=== PATIENT | male | born 1940 | race Caucasian/White ===

== ENCOUNTER 2018-08-06 10:10 | Inpatient (IN) ==
[2018-08-06] MEDS ORDERED: Isovue-370 500 ML BOTTLE IVP ONE (10:21)
--- NOTE | 2018-08-06 10:21 | Emergency Department Note ---
Disposition Clinical Impression: Carcinoma, lung, Hypoxia, Severe sepsis, Anemia Disposition: Admitted As Inpatient Condition: Fair General Adult HPI - General Stated complaint: ÁNGEL,Chest Xray, Sent by Dr. Gee Time Seen by Provider: 08/06/18 10:17 - Related Data Home Medications Medication Instructions Recorded Confirmed Aspirin 325 mg PO DAILY 06/29/18 08/06/18 BuPROPion SR (12 HR) [Wellbutrin 100 mg PO DAILY 06/29/18 08/06/18 SR] Glucosamine Sulfate Dipot Chlr 2,000 mg PO BID 06/29/18 08/06/18 [Glucosamine] Lisinopril [Zestril] 10 mg PO DAILY 06/29/18 08/06/18 [place]-3/Dha/Epa/Fish Oil [Fish Oil 1,000 mg PO BID 06/29/18 08/06/18 1,000 mg Softgel] Simvastatin [Zocor] 80 mg PO DAILY 06/29/18 08/06/18 Vitamin E 800 unit PO DAILY 06/29/18 08/06/18 Lidocaine/Prilocaine [Emla] 1 appl TP AD PRN 08/06/18 08/06/18 Zolpidem [Ambien] 10 mg PO HS PRN 08/06/18 08/06/18 Previous Rx's Medication Instructions Recorded Docusate [Colace] 100 mg PO BID PRN #60 capsule 06/29/18 Dexamethasone [Decadron] 4 mg PO AD #45 tab 07/06/18 Magic Mouthwash [Magic Mouthwash 10 ml PO QID PRN #240 ml 07/28/18 BLM] Allergies Allergy/AdvReac Type Severity Reaction Status Date / Time No Known Allergies Allergy Verified 07/10/18 10:42 Past Medical History - Past Medical History Medical history: Reports: hypertension - Social History Smoking Status: Former smoker Alcohol use: Reports: occasionally Drug use: Reports: none Course Vital Signs Temperature 98.8 F 08/06/18 10:24 Pulse Rate 105 08/06/18 10:24 Respiratory Rate 22 08/06/18 10:24 Blood Pressure 87/53 08/06/18 10:24 O2 Sat by Pulse Oximetry 92 08/06/18 10:24 Temperature 98.8 F 08/06/18 10:24 Pulse Rate 100 08/06/18 14:13 Respiratory Rate 18 08/06/18 15:14 Blood Pressure 87/58 08/06/18 14:17 O2 Sat by Pulse Oximetry 94 08/06/18 15:14 Oxygen Delivery Oxygen Delivery Nasal Cannula Medical Decision Making - Lab Data Result diagrams: 08/06/18 10:20 08/06/18 10:20 Lab Results 08/06/18 08/06/18 08/06/18 Range/Units 10:20 10:20 10:20 WBC 16.8 H (4.3-11.1) K/mcL RBC 3.59 L (4.19-5.50) M/mcL Hgb 10.0 L (12.9-16.9) g/dL Hct 30.6 L (37.5-50.1) % MCV 85.2 (83.0-100.0) fL MCH 27.9 L (28.0-33.3) pg MCHC 32.7 (31.6-35.5) g/dL RDW 17.0 H (11.5-14.5) % Plt Count 289 (140-400) K/mcL MPV 9.9 (9.4-12.4) fL Immature Gran % 4.9 H (0-4) % Seg Neutrophils % 87.1 % Lymphocytes % 4.8 % Monocytes % 2.7 % Eosinophils % 0.1 % Basophils % 0.4 % Neutrophils # 14.6 H (1.6-8.9) K/mcL Lymphocytes # 0.8 (0.6-4.6) K/mcL Monocytes # 0.5 (0.0-1.3) K/mcL Eosinophils # 0.0 (0.0-0.6) K/mcL Basophils # 0.1 (0.0-0.2) K/mcL Platelet Estimate Normal (Normal) PT 14.0 H (9.4-12.1) Seconds INR 1.2 Sodium 131 L (136-145) mEq/L Potassium 4.6 (3.5-5.1) mEq/L Chloride 97 L (98-107) mEq/L Carbon Dioxide 22 L (23-29) mEq/L BUN 35 H (8-23) mg/dL Creatinine 0.99 (0.70-1.30) mg/dL Est GFR ( Amer) > 60 (> 60) Est GFR (Non-Af Amer) > 60 (> 60) BUN/Creatinine Ratio 35 H (6-26) Glucose 199 H (70-105) mg/dL Calculated Osmolality 286 (280-300) Lactic Acid (0.5-2.2) mmol/L Calcium 8.6 (8.6-10.3) mg/dL Magnesium 2.0 (1.6-2.6) mg/dL Total Bilirubin 0.5 (0.3-1.0) mg/dL AST 28 (13-39) Units/L ALT 30 (7-52) Units/L Alkaline Phosphatase 79 (34-104) Units/L Troponin I 0.03 (< 0.04) ng/mL B-Natriuretic Peptide (Less than 100) pg/mL Serum Total Protein 5.9 L (6.4-8.9) g/dL Albumin 2.8 L (3.5-5.7) g/dL Globulin 3.1 (2.4-3.5) g/dL Albumin/Globulin Ratio 0.9 L (1.1-2.2) 08/06/18 08/06/18 08/06/18 Range/Units 10:20 10:20 13:14 WBC (4.3-11.1) K/mcL RBC (4.19-5.50) M/mcL Hgb (12.9-16.9) g/dL Hct (37.5-50.1) % MCV (83.0-100.0) fL MCH (28.0-33.3) pg MCHC (31.6-35.5) g/dL RDW (11.5-14.5) % Plt Count (140-400) K/mcL MPV (9.4-12.4) fL Immature Gran % (0-4) % Seg Neutrophils % % Lymphocytes % % Monocytes % % Eosinophils % % Basophils % % Neutrophils # (1.6-8.9) K/mcL Lymphocytes # (0.6-4.6) K/mcL Monocytes # (0.0-1.3) K/mcL Eosinophils # (0.0-0.6) K/mcL Basophils # (0.0-0.2) K/mcL Platelet Estimate (Normal) PT (9.4-12.1) Seconds INR Sodium (136-145) mEq/L Potassium (3.5-5.1) mEq/L Chloride (98-107) mEq/L Carbon Dioxide (23-29) mEq/L BUN (8-23) mg/dL Creatinine (0.70-1.30) mg/dL Est GFR ( Amer) (> 60) Est GFR (Non-Af Amer) (> 60) BUN/Creatinine Ratio (6-26) Glucose (70-105) mg/dL Calculated Osmolality (280-300) Lactic Acid 4.1 H* 1.9 (0.5-2.2) mmol/L Calcium (8.6-10.3) mg/dL Magnesium (1.6-2.6) mg/dL Total Bilirubin (0.3-1.0) mg/dL AST (13-39) Units/L ALT (7-52) Units/L Alkaline Phosphatase (34-104) Units/L Troponin I (< 0.04) ng/mL B-Natriuretic Peptide 158 H (Less than 100) pg/mL Serum Total Protein (6.4-8.9) g/dL Albumin (3.5-5.7) g/dL Globulin (2.4-3.5) g/dL Albumin/Globulin Ratio (1.1-2.2) Attestation Statement - Attestation Attestation: I reviewed the residents documentation and agree with the residents assessment and plan of care. I have personally had face to face time with the patient. (Brief History, Brief Exam, and MDM) I personally supervised and was present for the mohamud/critical portions of the following procedures completed by the resident: (add procedures performed here). [id number] time provided Patient arrives in the care of family complaining of dyspnea. He has recent diagnosis of lung cancer. He is not currently undergoing any active chemother apy. The patient appears visibly tachypneic on exam with accessory muscle use. Pulse ox was [facility]. I attest to supervising the resident physician's interpretation the ECG
[2018-08-06] MEDS ORDERED: Ipratropium/Albuterol Neb 3 ML IH ONE ×2 (10:24→12:42)
--- NOTE | 2018-08-06 10:27 | Emergency Department Note ---
Disposition Clinical Impression: Hypoxia, Severe sepsis Carcinoma, lung Qualifiers: Laterality: unspecified laterality Qualified Code(s): C34.90 - Malignant neoplasm of unspecified part of unspecified bronchus or lung Anemia Qualifiers: Anemia type: unspecified type Qualified Code(s): D64.9 - Anemia, unspecified Disposition: Admitted As Inpatient Condition: Fair Referrals: Rosaline Foote SENIOR ACCOUNTING MANAGER [Primary Care Provider] - Forms: ED Satisfaction Letter Time of Disposition: 12:46 General Adult HPI - General Chief complaint: ED Shortness of Breath/Dyspnea Stated complaint: ÁNGEL,Chest Xray, Sent by Dr. 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 Patient presents in the care of the family. Family states the patient has gone progressively more short of breath over the past 24 hours. States he was undergoing physical therapy yesterday. Notes dyspnea worsen with exertion. Notes a nonproductive cough. No fevers. Patient denies any chest pain. Patient denies abdominal pain or nausea vomiting. Patient does not require oxygen at home but was satting 80% in the oncology office on room air. Patient's on 4 L nasal cannula currently. Patient has not received any recent chemoradiation. States the diagnosis of lung cancer was over a year ago. Patient does have radiation therapy due to metastatic disease in the brain in the past but nothing recent. Denies a history of PEs. - Related Data Home Medications Medication Instructions Recorded Confirmed Aspirin 325 mg PO DAILY 06/29/18 08/06/18 BuPROPion SR (12 HR) [Wellbutrin 100 mg PO DAILY 06/29/18 08/06/18 SR] Glucosamine Sulfate Dipot Chlr 2,000 mg PO BID 06/29/18 08/06/18 [Glucosamine] Lisinopril [Zestril] 10 mg PO DAILY 06/29/18 08/06/18 [place]-3/Dha/Epa/Fish Oil [Fish Oil 1,000 mg PO BID 06/29/18 08/06/18 1,000 mg Softgel] Simvastatin [Zocor] 80 mg PO DAILY 06/29/18 08/06/18 Vitamin E 800 unit PO DAILY 06/29/18 08/06/18 Lidocaine/Prilocaine [Emla] 1 appl TP AD PRN 08/06/18 08/06/18 Zolpidem [Ambien] 10 mg PO HS PRN 08/06/18 08/06/18 Previous Rx's Medication Instructions Recorded Docusate [Colace] 100 mg PO BID PRN #60 capsule 06/29/18 Dexamethasone [Decadron] 4 mg PO AD #45 tab 07/06/18 Magic Mouthwash [Magic Mouthwash 10 ml PO QID PRN #240 ml 07/28/18 BLM] Allergies Allergy/AdvReac Type Severity Reaction Status Date / Time No Known Allergies Allergy Verified 07/10/18 10:42 All systems ED: reviewed and negative except as stated. Constitutional: Denies: fever Cardiovascular: Denies: chest pain Respiratory: Reports: cough, dyspnea. Denies: sputum production Gastrointestinal: Denies: abdominal pain, nausea, vomiting Past Medical History - Past Medical History Source: patient Medical history: Reports: hypertension - Social History Smoking Status: Former smoker Alcohol use: Reports: occasionally Drug use: Reports: none Physical Exam - General Limitations: no limitations General appearance: alert, cachectic - Head Head exam: atraumatic, normocephalic, normal inspection - Eye Eye exam: Present: normal appearance, PERRL, EOMI. Absent: scleral icterus - ENT ENT exam: normal exam - Neck Neck exam: Present: normal inspection - Chest Chest inspection: Present: normal inspection, symmetric chest wall rise, other (Left upper chest wall port) - Respiratory Respiratory exam: Present: accessory muscle use, prolonged expiratory phase. Absent: respiratory distress, wheezes - Cardiovascular Cardiovascular exam: Present: normal rhythm, tachycardia. Absent: normal heart sounds - Abdominal Exam Abdominal exam: Present: soft, Non-Tender - Extremities Exam Extremities exam: Present: normal inspection - Back Exam Back exam: Present: normal inspection - Neurological Exam Neurological exam: Present: alert, oriented X3, CN II-XII intact - Skin Skin exam: Present: warm, dry, intact, normal color Course Course Narrative: Patient presents from the oncology office for concerns of PE. Patient does have known lung CA. Patient is not on any chemoradiation currently. Patient will get respiratory support with oxygen, aerosols. Patient will get basic labs CT a of the chest anticipated admission for hypoxia. - Reevaluation(s) Reevaluation #1: Patient's lactate came back elevated. In the setting of hypotension. The patient is responding to fluids. Second IV placed. Patient will get fluid resuscitation. Patient also get broad-spectrum antibiotic coverage given concerns of a pulmonary source. Time: 11:09 Reevaluation #2: Patient's blood pressures responded to fluids. Patient's vitals are improving during the ED course. Time: 11:38 Reevaluation #3: Patient seen and examined. Patient CT results discussed with him at bedside. Notes worsening lung cancer metastatic disease. Patient will repeat aerosols. Patient blood pressure 95 systolic. Patient's responded to fluids. Repeat lactate is pending. Time: 12:45 Additional Reevaluation(s): Patient's CT report discussed with him at bedside. Concerns of worsening metastatic disease. Patient recent map of 72. QUESTION were answered at this time. At this time the patient is still full code and states he would want in tubation as well as chest compressions. Vital Signs Temperature 98.8 F 08/06/18 10:24 Pulse Rate 105 08/06/18 10:24 Respiratory Rate 22 08/06/18 10:24 Blood Pressure 87/53 08/06/18 10:24 O2 Sat by Pulse Oximetry 92 08/06/18 10:24 Temperature 98.8 F 08/06/18 10:24 Pulse Rate 99 08/06/18 11:30 Respiratory Rate 18 08/06/18 13:02 Blood Pressure 99/61 08/06/18 11:30 O2 Sat by Pulse Oximetry 92 08/06/18 13:02 Oxygen Delivery Oxygen Delivery Nasal Cannula Medical Decision Making - [facility] Narrative Medical decision making narrative: Patient presented for concerns of hypoxia from the cancer center. Has squamous cell lung cancer. Patient was noted to have room air sats in the 80s. Patient does not wear home oxygen. Patient triggered sepsis with concerns of hypotension the setting of elevated lactate and potential source of infection. Patient was given fluid resuscitation with 30 mL/kg. Patient was given broad- spectrum antibiotic coverage to cover pulmonary. Patient CT scan the chest does not reveal any PE or discrete consolidation but notes worsening metastatic disease. Patient does have severe COPD. Patient will be admitted to the hospital service for continued evaluation monitoring. Patient has been stable in the ER for several hours. Patient was noted to be anemic however denies any blood in the stool or dark tarry stools. Patient also benefit from goals of care discussion. - Lab Data Lab results reviewed: Yes I reviewed the patient's lab results. Result diagrams: 08/06/18 10:20 08/06/18 10:20 Lab Results 08/06/18 08/06/18 08/06/18 Range/Units 10:20 10:20 10:20 WBC 16.8 H (4.3-11.1) K/mcL RBC 3.59 L (4.19-5.50) M/mcL Hgb 10.0 L (12.9-16.9) g/dL Hct 30.6 L (37.5-50.1) % MCV 85.2 (83.0-100.0) fL MCH 27.9 L (28.0-33.3) pg MCHC 32.7 (31.6-35.5) g/dL RDW 17.0 H (11.5-14.5) % Plt Count 289 (140-400) K/mcL MPV 9.9 (9.4-12.4) fL Immature Gran % 4.9 H (0-4) % Seg Neutrophils % 87.1 % Lymphocytes % 4.8 % Monocytes % 2.7 % Eosinophils % 0.1 % Basophils % 0.4 % Neutrophils # 14.6 H (1.6-8.9) K/mcL Lymphocytes # 0.8 (0.6-4.6) K/mcL Monocytes # 0.5 (0.0-1.3) K/mcL Eosinophils # 0.0 (0.0-0.6) K/mcL Basophils # 0.1 (0.0-0.2) K/mcL Platelet Estimate Normal (Normal) PT 14.0 H (9.4-12.1) Seconds INR 1.2 Sodium 131 L (136-145) mEq/L Potassium 4.6 (3.5-5.1) mEq/L Chloride 97 L (98-107) mEq/L Carbon Dioxide 22 L (23-29) mEq/L BUN 35 H (8-23) mg/dL Creatinine 0.99 (0.70-1.30) mg/dL Est GFR ( Amer) > 60 (> 60) Est GFR (Non-Af Amer) > 60 (> 60) BUN/Creatinine Ratio 35 H (6-26) Glucose 199 H (70-105) mg/dL Calculated Osmolality 286 (280-300) Lactic Acid (0.5-2.2) mmol/L Calcium 8.6 (8.6-10.3) mg/dL Magnesium 2.0 (1.6-2.6) mg/dL Total Bilirubin 0.5 (0.3-1.0) mg/dL AST 28 (13-39) Units/L ALT 30 (7-52) Units/L Alkaline Phosphatase 79 (34-104) Units/L Troponin I 0.03 (< 0.04) ng/mL B-Natriuretic Peptide (Less than 100) pg/mL Serum Total Protein 5.9 L (6.4-8.9) g/dL Albumin 2.8 L (3.5-5.7) g/dL Globulin 3.1 (2.4-3.5) g/dL Albumin/Globulin Ratio 0.9 L (1.1-2.2) 08/06/18 08/06/18 Range/Units 10:20 10:20 WBC (4.3-11.1) K/mcL RBC (4.19-5.50) M/mcL Hgb (12.9-16.9) g/dL Hct (37.5-50.1) % MCV (83.0-100.0) fL MCH (28.0-33.3) pg MCHC (31.6-35.5) g/dL RDW (11.5-14.5) % Plt Count (140-400) K/mcL MPV (9.4-12.4) fL Immature Gran % (0-4) % Seg Neutrophils % % Lymphocytes % % Monocytes % % Eosinophils % % Basophils % % Neutrophils # (1.6-8.9) K/mcL Lymphocytes # (0.6-4.6) K/mcL Monocytes # (0.0-1.3) K/mcL Eosinophils # (0.0-0.6) K/mcL Basophils # (0.0-0.2) K/mcL Platelet Estimate (Normal) PT (9.4-12.1) Seconds INR Sodium (136-145) mEq/L Potassium (3.5-5.1) mEq/L Chloride (98-107) mEq/L Carbon Dioxide (23-29) mEq/L BUN (8-23) mg/dL Creatinine (0.70-1.30) mg/dL Est GFR ( Amer) (> 60) Est GFR (Non-Af Amer) (> 60) BUN/Creatinine Ratio (6-26) Glucose (70-105) mg/dL Calculated Osmolality (280-300) Lactic Acid 4.1 H* (0.5-2.2) mmol/L Calcium (8.6-10.3) mg/dL Magnesium (1.6-2.6) mg/dL Total Bilirubin (0.3-1.0) mg/dL AST (13-39) Units/L ALT (7-52) Units/L Alkaline Phosphatase (34-104) Units/L Troponin I (< 0.04) ng/mL B-Natriuretic Peptide 158 H (Less than 100) pg/mL Serum Total Protein (6.4-8.9) g/dL Albumin (3.5-5.7) g/dL Globulin (2.4-3.5) g/dL Albumin/Globulin Ratio (1.1-2.2) - Radiology Data Radiology results reviewed: Yes I reviewed the patient's radiology results. Chest CTA 08/06/18 10:21 IMPRESSION: 1. Redemonstration of a left upper lung cancer extending along the left anterior, medial and lateral pleural surface as well as into the left hilar area with encasement of vessels and bronchi. 2. Redemonstration of extensive mediastinal and hilar lymphadenopathy. 3. No evidence of acute pulmonary embolism. 4. Thickening of the distal esophagus consistent with esophagitis. 5. Redemonstration of severe emphysema. A nodule in the left upper lobe adjacent to the main lesion has grown in size. 6. Although no evidence of pleural effusion there is evidence of irregularity and nodularity along the left pleural surface which may represent metastatic deposits. D/ / 08/06/2018 12:40:53 Araceli Phelps MD / tkyer Interpreting Provider: Araceli Phelps MD - EKG Data EKG #1 EKG attestation: Yes I reviewed and interpreted this EKG. EKG shows normal: sinus rhythm Rate: tachycardia Rhythm: NSR [place]/QRS: normal Q waves: aVR Interpretation: no acute changes, nonspecific ST-T wave changes [place] Situation: Demographics Background: Presenting Complaint Assessment: Vital Signs, Course and respsone to treatment Recommendation: Barrier(s) to disposition, Recommendation based on pending studies, treatments, or consults [place] Report Given to: Hospitalist [place] Repor Time: 13:11 Sepsis Reassessment Note - Evaluation Sepsis Screen: Severe Sepsis Risk Current Stage of Sepsis: severe sepsis Possible Source of Sepsis: pulmonary - Focused Exam Date of Encounter: 08/06/18 Time of Encounter: 11:22 Vital Signs: Vital Signs Temp Pulse Resp BP Pulse Ox 08/06/18 13:02 18 92 08/06/18 11:30 99 24 99/61 96 08/06/18 10:49 101 26 81/48 91 08/06/18 10:43 24 97 08/06/18 10:38 102 34 77/57 98 08/06/18 10:24 98.8 F 105 22 87/53 92 Respiratory Exam: Present: accessory muscle use, decreased breath sounds. Absent: respiratory distress Cardiovascular Exam: Present: RRR Capillary Refill: < 2 seconds Peripheral Pulse Strength: 2+ slightly diminished Peripheral Pulse Location: Radial Skin Exam: normal turgor
[2018-08-06] MEDS: 0.9 % Sodium Chloride 500 ML IVC ONE ×2 (10:36→11:23)
[2018-08-06 10:50] LABS: Basophils # 0.1 K/mcL (0.0-0.2); Basophils % 0.4 %; Eosinophils % 0.1 %; Hematocrit 30.6 % (37.5-50.1); Immature Granulocytes % 4.9 % (0-4); Lymphocytes # 0.8 K/mcL (0.6-4.6); Lymphocytes % 4.8 %; Mean Corpuscular HGB Conc 32.7 g/dL (31.6-35.5); Mean Corpuscular Hemoglobin 27.9 pg (28.0-33.3); Mean Corpuscular Volume 85.2 fL (83.0-100.0); Mean Platelet Volume 9.9 fL (9.4-12.4); Monocytes # 0.5 K/mcL (0.0-1.3); Monocytes % 2.7 %; Platelet Count 289 K/mcL (140-400); Red Blood Count 3.59 M/mcL (4.19-5.50); Segmented Neutrophils % 87.1 %
[2018-08-06] MEDS ORDERED: 0.9 % Sodium Chloride 500 ML ONE (10:55)
[2018-08-06 11:01] LABS: INR 1.2
[2018-08-06] MEDS ORDERED: 0.9 % Sodium Chloride 1,000 ML IVC ONE (11:08)
[2018-08-06 11:09] LABS: Alanine Aminotransferase 30 Units/L (7-52); Albumin 2.8 g/dL (3.5-5.7); Albumin/Globulin Ratio 0.9 (1.1-2.2); Alkaline Phosphatase 79 Units/L (34-104); Aspartate Amino Transferase 28 Units/L (13-39); BUN/Creatinine Ratio 35 (6-26); Bilirubin,Total 0.5 mg/dL (0.3-1.0); Blood Urea Nitrogen 35 mg/dL (8-23); Calcium 8.6 mg/dL (8.6-10.3); Carbon Dioxide 22 mEq/L (23-29); Chloride 97 mEq/L (98-107); Globulin 3.1 g/dL (2.4-3.5); Glucose 199 mg/dL (70-105); Neutrophils # 14.6 K/mcL (1.6-8.9); Osmolality,Calculated 286 (280-300); Potassium 4.6 mEq/L (3.5-5.1); Sodium 131 mEq/L (136-145); Total Protein 5.9 g/dL (6.4-8.9); Troponin I 0.03 ng/mL (< 0.04); eGFR For Non-African Americans > 60 (> 60)
[2018-08-06] MEDS ORDERED: Piperacillin/Tazobactam 3.375 GM in 0.9 % Sodium Chloride Mini Bag 100 ML IVPB ONE (11:09)
[2018-08-06 11:30] LABS: Platelet Estimate Normal (Normal)
[2018-08-06] MEDS ORDERED: 0.9 % Sodium Chloride 500 ML IVC ONE (11:43)
[2018-08-06] MEDS ORDERED: methylPREDNISolone 125 MG/2 ML VIAL IVP ONE (12:44)
[2018-08-06] MEDS ORDERED: Acetaminophen 325 MG TABLET PO PRN (14:04)
[2018-08-06] MEDS ORDERED: Naloxone 0.4 MG/ML INJ IVP PRN (14:04)
--- NOTE | 2018-08-06 14:19 | Internal Med History&Physical ---
<Josafat Rincon - Last Filed: 08/06/18 17:56> Date of Encounter: 08/06/18 Time of Encounter: 15:06 Internal Medicine - H&P: HPI Chief complaint: Hypoxia Admitted From: Emergency Dept History of present illness: Mr. 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 Hermila Davey secondary to hypoxia and shortness of breath for the past 1 day. He is on dexamethasone status post radiation treatment 3 to his brain. Patient has a left upper chest Port-A-Cath in place that does not appear infected at this time. In the ED, patient meet severe sepsis criteria with lactic acid 4.1, leukocytosis WBC 16.8, tachycardia heart rate 105, respiratory rate 34, and initial blood pressure 77/57. Patient was given sepsis IV fluid bolus, broad- spectrum antibiotics, and blood cultures were obtained. Past Med Surg Social Fam HX - Past Medical History Medical history: cancer, diabetes, hypertension Additional medical history: brain tumor, right side paralysis, lung cancer, brain cancer, and lymphnode - Past Surgical History Additional surgical history: triple bypass, cardiac stents, back surgery - Social History Smoking Status: Former smoker Alcohol use: occasionally Drug use: none - Family History Father Living Status: Hx Family Cardiac Disorders: Yes (PR) Hx Family Respiratory Disorders: Yes (COPD) Mother Living Status: Hx Family Cardiac Disorders: Yes (Hyperlipidemia) Internal Medicine - H&P: Meds Aspirin 325 mg PO DAILY 06/29/18 [History] BuPROPion SR (12 HR) [Wellbutrin SR] 100 mg PO DAILY 06/29/18 [History] Docusate [Colace] 100 mg PO BID PRN #60 capsule 06/29/18 [Rx] Glucosamine Sulfate Dipot Chlr [Glucosamine] 2,000 mg PO BID 06/29/18 [History] Lisinopril [Zestril] 10 mg PO DAILY 06/29/18 [History] [place]-3/Dha/Epa/Fish Oil [Fish Oil 1,000 mg Softgel] 1,000 mg PO BID 06/29/18 [History] Simvastatin [Zocor] 80 mg PO DAILY 06/29/18 [History] Vitamin E 800 unit PO DAILY 06/29/18 [History] Dexamethasone [Decadron] 4 mg PO AD #45 tab 07/06/18 [Rx] Magic Mouthwash [Magic Mouthwash BLM] 10 ml PO QID PRN #240 ml 07/28/18 [Rx] Lidocaine/Prilocaine [Emla] 1 appl TP AD PRN 08/06/18 [History] Zolpidem [Ambien] 10 mg PO HS PRN 08/06/18 [History] Allergy/AdvReac Type Severity Reaction Status Date / Time No Known Allergies Allergy Verified 07/10/18 10:42 All Systems PM: A 10-system review of systems was performed and is negative for pertinent findings except as documented above in the HPI. - Constitutional Constitutional: chills, fatigue, weakness, no fever(s) - EENT Eyes: no blurry vision, no diplopia Nose, mouth and throat: no sinus pain, no sore throat - Cardiovascular Cardiovascular ROS IM: dyspnea, palpitations, no chest pain, no dyspnea on exertion, no edema, no irregular heart rhythm, no orthopnea, no syncope - Respiratory Respiratory: cough, dyspnea, wheezing, no dyspnea on exertion, no chest congestion - Gastrointestinal Gastrointestinal: no abdominal pain, no diarrhea, no nausea, no vomiting - Genitourinary Genitourinary ROS male: no difficulty urinating, no dysuria, no urinary frequency, no urinary urgency - Musculoskeletal Musculoskeletal ROS IM: no arthralgias, no back pain, no numbness, no tingling - Integumentary Integumentary IM: no new lesions, no rash, no jaundice - Neurological Neurological ROS: weakness, no numbness, no tingling - Psychiatric Psychiatric: no anxiety, no depression - Endocrine Endocrine IM: no polydipsia, no polyphagia, no polyuria - Hematologic/Lymphatic Hematologic/Lymphatic: no easy bleeding, no easy bruising - Constitutional Vitals: Temp Pulse Resp BP Pulse Ox 98.8 F 100 18 87/58 95 08/06/18 10:24 08/06/18 14:13 08/06/18 13:02 08/06/18 14:17 05/16/19 14:13 General appearance: Present: cooperative, A&O X 3, pleasant, no acute distress, answers questions appropriately Exam: Chronically ill-appearing - Head Head exam: Present: atraumatic, normocephalic - Eye Eye exam: Present: EOMI, conjuntiva pink, sclera anicteric - ENT ENT exam: Present: mucous membranes dry, normal oropharynx - Neck Neck exam general surgery: Present: supple, trachea midline. Absent: lymphadenopathy - Respiratory Respiratory exam: Present: decreased breath sounds. Absent: accessory muscle use, rales, respiratory distress, rhonchi, wheezes - Cardiovascular Cardiovascular exam: Present: RRR, +S1, +S2, tachycardia. Absent: diastolic murmur, gallop, rubs, systolic murmur - GI/Abdominal GI/Abdominal exam: Present: normal bowel sounds, soft, no peritoneal signs. Absent: distended, tenderness - Extremities Exam Extremities exam: Present: warm, radial pulses palpable and symmetrical. Absent: calf tenderness, cyanotic, pedal edema - Back Exam Back exam: Present: normal inspection. Absent: paraspinal tenderness, tenderness - Neurological Exam Neurological exam: Present: alert, CN II-XII intact, oriented X3, no focal deficits. Absent: facial droop, speech deficit - Psychiatric Psychiatric exam: Present: normal affect, normal mood - Skin Skin exam: Present: dry, intact (No erythema left upper chest port site) Internal Med - H&P Results - Labs CBC & Chem 7: 08/06/18 10:20 08/06/18 10:20 Labs: Short CBC 08/06/18 Range/Units 10:20 WBC 16.8 H (4.3-11.1) K/mcL Hgb 10.0 L (12.9-16.9) g/dL Hct 30.6 L (37.5-50.1) % Plt Count 289 (140-400) K/mcL Neutrophils # 14.6 H (1.6-8.9) K/mcL BMP 08/06/18 10:20 Sodium 131 L Potassium 4.6 Chloride 97 L Carbon Dioxide 22 L BUN 35 H Creatinine 0.99 Glucose 199 H Calcium 8.6 Cardiac Enzymes 08/06/18 Range/Units 10:20 Troponin I 0.03 (< 0.04) ng/mL Liver Function 08/06/18 Range/Units 10:20 Total Bilirubin 0.5 (0.3-1.0) mg/dL AST 28 (13-39) Units/L ALT 30 (7-52) Units/L Alkaline Phosphatase 79 (34-104) Units/L Albumin 2.8 L (3.5-5.7) g/dL - Pulse Oximetry Interpretation Digit-Finger O2 Sat by Pulse Oximetry: 94 (On 4 L O2 via nasal cannula) Actions taken: none - EKG Data -: EKG Interpreted by Myself EKG shows normal: sinus rhythm Rate: tachycardia (Heart rate 106, QTC 505, no ST segment elevation or depression) - Impressions ITS Impressions Chest CTA 08/06/18 10:21 IMPRESSION: 1. Redemonstration of a left upper lung cancer extending along the left anterior, medial and lateral pleural surface as well as into the left hilar area with encasement of vessels and bronchi. 2. Redemonstration of extensive mediastinal and hilar lymphadenopathy. 3. No evidence of acute pulmonary embolism. 4. Thickening of the distal esophagus consistent with esophagitis. 5. Redemonstration of severe emphysema. A nodule in the left upper lobe adjacent to the main lesion has grown in size. 6. Although no evidence of pleural effusion there is evidence of irregularity and nodularity along the left pleural surface which may represent metastatic deposits. D/ / 08/06/2018 12:40:53 Araceli Phelps MD / tkyer Interpreting Provider: Araceli Phelps MD - Assessment and Plan (1) Severe sepsis Current Visit: Yes Status: Acute Assessment and plan: Patient meet severe sepsis criteria with leukocytosis WBC 16.8, tachycardia heart rate 105, respiratory rate 34, and initial blood pressure 77/57. Lactic acid 4.1, repeat lactic acid level 1.9 Patient was given sepsis IV fluid bolus, broad-spectrum antibiotics, and blood cultures were obtained. Blood pressure improved to 95/54 after IV fluid boluses. Condition remains guarded, continue close monitoring. (2) HCAP (healthcare-associated pneumonia) Current Visit: Yes Status: Acute Assessment and plan: 77-year-old male with a history of COPD and metastatic squamous cell carcinoma of the left lung presented to the ED from his oncologist's office with hypoxemia and increased shortness of breath for the past 24 hours. Patient had positive Haemophilus influenza cultures on bronchoscopy 06/30/18. Patient is on steroids status post radiation therapy to his brain. CT chest revealed redemonstration of a left upper lung cancer extending along the left anterior, medial and lateral pleural surface as well as into the left hilar area with encasement of vessels and bronchi. Redemonstration of extensive mediastinal and hilar lymphadenopathy. No evidence of acute pulmonary embolism. Redemonstration of severe emphysema. A nodule in the left upper lobe adjacent t o the main lesion has grown in size. Although no evidence of pleural effusion there is evidence of irregularity and nodularity along the left pleural surface which may represent metastatic deposits. Continue broad-spectrum antibiotics (Vanc, Zosyn, Levaquin). Blood cultures pending, sputum cultures pending, and culture pending, urine Legionella and urine strep pneumo antigens pending, MRSA nasal swab pending. De-escalate antibiotics based on culture results. (3) Squamous cell lung cancer Current Visit: Yes Status: Chronic Assessment and plan: CT chest revealed redemonstration of a left upper lung cancer extending along the left anterior, medial and lateral pleural surface as well as into the left hilar area with encasement of vessels and bronchi. Redemonstration of extensive mediastinal and hilar lymphadenopathy. No evidence of acute pulmonary embolism. Redemonstration of severe emphysema. A nodule in the left upper lobe adjacent to the main lesion has grown in size. Although no evidence of pleural effusion there is evidence of irregularity and nodularity along the left pleural surface which may represent metastatic deposits. Patient sees [place] oncologist Dr. Hermila Davey as an outpatient. Continue current therapy. Qualifiers: Laterality: left Qualified Code(s): C34.92 - Malignant neoplasm of unspecified part of left bronchus or lung (4) Port-A-Cath in place Current Visit: Yes Status: Acute Assessment and plan: Left chest Port-A-Cath in place, does not appear infected. Patient was initially scheduled to start chemotherapy today. (5) COPD with acute exacerbation Current Visit: Yes Status: Acute Assessment and plan: Continue antibiotics, steroids, and bronchodilators. (6) Hyponatremia Current Visit: Yes Status: Acute Assessment and plan: Hypovolemic hyponatremia likely secondary to dehydration. Continue IV fluids. Continue monitoring. (7) Anemia Current Visit: Yes Status: Acute Assessment and plan: Hemoglobin 10.0, baseline hemoglobin level around 13. No signs of active bleeding. 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 Patient is on steroids status post radiation therapy to his brain. - Time Spent With Patient Total time spent is greater than 50% in coordination of care (as documented) at patient's floor/unit and/or counseling patient: Sepsis Reassessment Note - Evaluation Sepsis Screen: Severe Sepsis Risk Current Stage of Sepsis: severe sepsis Possible Source of Sepsis: pulmonary - Focused Exam Date of Encounter: 08/06/18 Time of Encounter: 16:00 Vital Signs: Vital Signs Temp Pulse Resp BP Pulse Ox 08/06/18 14:17 87/58 08/06/18 14:13 100 94/41 95 08/06/18 13:22 100 89/53 95 08/06/18 13:02 18 92 08/06/18 11:30 99 24 99/61 96 08/06/18 10:49 101 26 81/48 91 08/06/18 10:43 24 97 08/06/18 10:38 102 34 77/57 98 08/06/18 10:24 98.8 F 105 22 87/53 92 Respiratory Exam: Absent: respiratory distress Cardiovascular Exam: Present: RRR Capillary Refill: < 2 seconds Peripheral Pulse Strength: 3+ normal Peripheral Pulse Location: Radial Skin Exam: normal turgor <Leeanne Riddle Z - Last Filed: 08/07/18 03:33> Date of Encounter: 08/06/18 Internal Medicine - H&P: HPI History of present illness: Mr. Kahn is a 77 year old male All Systems PM: A 10-system review of systems was performed and is negative for pertinent findings except as documented above in the HPI. - Constitutional Vitals: Temp Pulse Resp BP Pulse Ox 97.8 F 101 18 100/75 98 08/07/18 00:07 08/07/18 00:07 08/07/18 00:07 08/07/18 00:07 08/07/18 00:07 Internal Med - H&P Results - Labs CBC & Chem 7: 08/06/18 10:20 08/06/18 10:20 Labs: Short CBC 08/06/18 Range/Units 10:20 WBC 16.8 H (4.3-11.1) K/mcL Hgb 10.0 L (12.9-16.9) g/dL Hct 30.6 L (37.5-50.1) % Plt Count 289 (140-400) K/mcL Neutrophils # 14.6 H (1.6-8.9) K/mcL BMP 08/06/18 10:20 Sodium 131 L Potassium 4.6 Chloride 97 L Carbon Dioxide 22 L BUN 35 H Creatinine 0.99 Glucose 199 H Calcium 8.6 Cardiac Enzymes 08/06/18 Range/Units 10:20 Troponin I 0.03 (< 0.04) ng/mL Liver Function 08/06/18 Range/Units 10:20 Total Bilirubin 0.5 (0.3-1.0) mg/dL AST 28 (13-39) Units/L ALT 30 (7-52) Units/L Alkaline Phosphatase 79 (34-104) Units/L Albumin 2.8 L (3.5-5.7) g/dL Urine 08/06/18 Range/Units 14:35 Urine Color Yellow (Yellow) Urine Clarity Clear (Clear) Urine pH 6.0 (5.0-8.0) pH Units Ur Specific [place] > 1.030 H (1.010-1.025) Urine Protein Negative (Neg-Trace) mg/dL Urine Glucose (UA) Normal (Normal) mg/dL - Impressions ITS Impressions Chest CTA 08/06/18 10:21 IMPRESSION: 1. Redemonstration of a left upper lung cancer extending along the left anterior, medial and lateral pleural surface as well as into the left hilar area with encasement of vessels and bronchi. 2. Redemonstration of extensive mediastinal and hilar lymphadenopathy. 3. No evidence of acute pulmonary embolism. 4. Thickening of the distal esophagus consistent with esophagitis. 5. Redemonstration of severe emphysema. A nodule in the left upper lobe adjacent to the main lesion has grown in size. 6. Although no evidence of pleural effusion there is evidence of irregularity and nodularity along the left pleural surface which may represent metastatic deposits. D/ / 08/06/2018 12:40:53 Araceli Phelps MD / tkyer Interpreting Provider: Araceli Phelps MD - Assessment and Plan (1) Squamous cell lung cancer Current Visit: Yes Status: Chronic Qualifiers: Laterality: left Qualified Code(s): C34.92 - Malignant neoplasm of unspecif ied part of left bronchus or lung (2) Severe sepsis Current Visit: Yes Status: Acute (3) Anemia Current Visit: Yes Status: Acute Qualifiers: Anemia type: unspecified type Qualified Code(s): D64.9 - Anemia, unspecified (4) Hyponatremia Current Visit: Yes Status: Acute (5) HCAP (healthcare-associated pneumonia) Current Visit: Yes Status: Acute (6) Port-A-Cath in place Current Visit: Yes Status: Acute (7) COPD with acute exacerbation Current Visit: Yes Status: Acute (8) DVT prophylaxis Current Visit: Yes Status: Acute (9) 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 I am in agreement with the assessment and proposed treatment plan. I discussed my findings and recommendation with the patient and answer his questions. The patient's medical records were edited to accurately reflect this encounter. Sepsis Reassessment Note - Focused Exam Vital Signs: Vital Signs Temp Pulse Resp BP Pulse Ox 08/07/18 00:07 97.8 F 101 18 100/75 98 08/06/18 23:07 14 92 08/06/18 21:47 97.8 F 96 20 89/57 90 08/06/18 19:46 14 94 08/06/18 15:35 98.1 F 102 20 99/54 90
[2018-08-06 14:55] LABS: Bilirubin,Urine Negative (Negative); Blood,Urine Negative (Negative); Clarity,Urine Clear (Clear); Color,Urine Yellow (Yellow); Glucose,Urine (UA) Normal (Normal); Ketones,Urine Negative (Negative); Leukocyte Esterase,Urine Negative (Negative); Nitrite,Urine Negative (Negative); Protein,Urine Negative (Neg-Trace); Specific Gravity,Urine > 1.030 (1.010-1.025); Urobilinogen,Urine Normal (Normal)
[2018-08-06] MEDS ORDERED: Vancomycin (wt based) 1,000 MG VIAL IVPB SCH (15:00)
[2018-08-06] MEDS: Ipratropium/Albuterol Neb 3 ML IH SCH ×3 (15:13→23:07)
[2018-08-06] MEDS: 0.9 % Sodium Chloride 1,000 ML IVC SCH (16:31)
[2018-08-06] MEDS: Levofloxacin 750 MG/150 ML 750 MG/150 ML BAG IVPB SCH (16:31)
[2018-08-06] MEDS: MethylPREDNISolone 40 MG/ML VIAL IVP SCH ×2 (18:32→23:11)
[2018-08-06] MEDS: Piperacillin/Tazobactam 3.375 GM in 0.9 % Sodium Chloride Mini Bag 100 ML IVPB SCH (20:14)
--- NOTE | 2018-08-06 22:17 | Electrocardiograph Report ---
[facility] 1d4 Pty Test Date: 2018-08-06 Pat Name: Brady Kahn Department: EXAM4 Room: 2NE20 Gender: M Head Of Commission Department: : 1940 Requested By: Shiva Norton Order Number: [id number] Reading MD: Arturo Blackburn Measurements Intervals [place] Rate: 106 P: 31 PA: 168 QRS: 19 QRSD: 69 T: 91 QT: 380 QTc: 505 Interpretive Statements Sinus tachycardia Multiple premature complexes, ventricular & supraventricular Electronically Signed On 08-06-2018 22:15:45 EDT by Arturo Blackburn
[2018-08-06] MEDS: *HR* Heparin 5,000 UNIT/ML VIAL SQ SCH (23:11)
[2018-08-07] MEDS: Ipratropium/Albuterol Neb 3 ML IH SCH ×2 (03:48→07:18)
[2018-08-07] MEDS: Piperacillin/Tazobactam 3.375 GM in 0.9 % Sodium Chloride Mini Bag 100 ML IVPB SCH ×3 (04:05→18:44)
[2018-08-07] MEDS: 0.9 % Sodium Chloride 1,000 ML IVC SCH (04:12)
[2018-08-07] MEDS: *HR* Heparin 5,000 UNIT/ML VIAL SQ SCH ×3 (05:23→20:44)
[2018-08-07] MEDS: MethylPREDNISolone 40 MG/ML VIAL IVP SCH ×3 (05:23→18:44)
[2018-08-07 05:52] LABS: Basophils % 0.1 %; Hematocrit 26.1 % (37.5-50.1); Hemoglobin 8.7 g/dL (12.9-16.9); Immature Granulocytes % 2.5 % (0-4); Lymphocytes # 0.5 K/mcL (0.6-4.6); Lymphocytes % 2.7 %; Mean Corpuscular HGB Conc 33.3 g/dL (31.6-35.5); Mean Corpuscular Hemoglobin 28.2 pg (28.0-33.3); Mean Corpuscular Volume 84.5 fL (83.0-100.0); Monocytes # 0.4 K/mcL (0.0-1.3); Monocytes % 2.1 %; Neutrophils # 18.5 K/mcL (1.6-8.9); Platelet Count 252 K/mcL (140-400); Red Blood Count 3.09 M/mcL (4.19-5.50); Red Cell Distribution Width 17.4 % (11.5-14.5); Segmented Neutrophils % 92.6 %
[2018-08-07 06:13] LABS: BUN/Creatinine Ratio 27 (6-26); Blood Urea Nitrogen 22 mg/dL (8-23); Carbon Dioxide 20 mEq/L (23-29); Chloride 102 mEq/L (98-107); Glucose 259 mg/dL (70-105); Osmolality,Calculated 288 (280-300); Potassium 3.9 mEq/L (3.5-5.1); Sodium 133 mEq/L (136-145); eGFR For Non-African Americans > 60 (> 60)
--- NOTE | 2018-08-07 08:03 | Internal Med Progress Note ---
Hospitalist Progress Note - Encounter Date of Encounter: 08/07/18 Time of Encounter: 08:11 - Subjective Interval History: Patient seen and examined this morning at bedside. No acute overnight events. Is feeling a lot better then how he came in. Breathing improving but still shortness of breath. Denies any chest pain abdominal pain. Is urinating more. Denies any nausea vomiting or diarrhea. - Exam Vitals: Temp Pulse Resp BP Pulse Ox 98 F 105 18 104/61 97 08/07/18 07:23 08/07/18 07:23 08/07/18 07:23 08/07/18 07:23 08/07/18 07:23 Exam: General: In no acute distress. Respiratory exam: CTAB. mild accessory muscle use on oxymask No rales, rhonchi, wheezes appreciated Cardiovascular exam: tachycardia, +S1, +S2. no murmur, gallop, rubs. GI/Abdominal exam: Non-tender, Non-distended, normal bowel sounds, soft, no peritoneal signs. Extremities exam: no pedal edema, no calf tenderness Neurological exam: CN II-XII intact, AO X3, no focal deficits. 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 Blood cultures negative today. Has port-a cath does not look infected. Urine antigens negative. Blood pressure improved after IV fluids. Received Adequate iv fluids. recent H.influenza on bronchoscopy. MRSA negative. - Continue antibiotics and ns 100 mL. f/u lactic acid as last still elevated and trend. possibly from albuterol. Will switch to xopenez. add symbicort. Will consider stopping vancomycin by tomorrow if BC remains negative. - C/W solumedrol for COPD . add sliding scale insulin. not on diabetic meds at home. - Patient was on steroids after radiation. - stop lisinopril as BP on low end. - Discussed CODE STATUS and he wants to be full code. - Time Spent with Patient Total time spent is greater than 50% in coordination of care (as documented) at patient's floor/unit and/or counseling patient: Internal Medicine: Result - Labs CBC & Chem 7: 08/07/18 05:21 08/07/18 05:21 Labs: Short CBC 08/06/18 08/07/18 Range/Units 10:20 05:21 WBC 16.8 H 19.9 H (4.3-11.1) K/mcL Hgb 10.0 L 8.7 L (12.9-16.9) g/dL Hct 30.6 L 26.1 L (37.5-50.1) % Plt Count 289 252 (140-400) K/mcL Neutrophils # 14.6 H 18.5 H (1.6-8.9) K/mcL BMP 08/06/18 08/07/18 10:20 05:21 Sodium 131 L 133 L Potassium 4.6 3.9 Chloride 97 L 102 Carbon Dioxide 22 L 20 L BUN 35 H 22 Creatinine 0.99 0.82 Glucose 199 H 259 H Calcium 8.6 8.0 L Cardiac Enzymes 08/06/18 Range/Units 10:20 Troponin I 0.03 (< 0.04) ng/mL Liver Function 08/06/18 Range/Units 10:20 Total Bilirubin 0.5 (0.3-1.0) mg/dL AST 28 (13-39) Units/L ALT 30 (7-52) Units/L Alkaline Phosphatase 79 (34-104) Units/L Albumin 2.8 L (3.5-5.7) g/dL Urine 08/06/18 Range/Units 14:35 Urine Color Yellow (Yellow) Urine Clarity Clear (Clear) Urine pH 6.0 (5.0-8.0) pH Units Ur Specific [place] > 1.030 H (1.010-1.025) Urine Protein Negative (Neg-Trace) mg/dL Urine Glucose (UA) Normal (Normal) mg/dL - ABG Interpretation ABG results: PT/INR, D-dimer PT 14.0 Seconds (9.4-12.1) H 08/06/18 10:20 - Impressions Impressions Chest CTA 08/06/18 10:21 IMPRESSION: 1. Redemonstration of a left upper lung cancer extending along the left anterior, medial and lateral pleural surface as well as into the left hilar area with encasement of vessels and bronchi. 2. Redemonstration of extensive mediastinal and hilar lymphadenopathy. 3. No evidence of acute pulmonary embolism. 4. Thickening of the distal esophagus consistent with esophagitis. 5. Redemonstration of severe emphysema. A nodule in the left upper lobe adjacent to the main lesion has grown in size. 6. Although no evidence of pleural effusion there is evidence of irregularity and nodularity along the left pleural surface which may represent metastatic deposits. D/ / 08/06/2018 12:40:53 Araceli Phelps MD / lico Interpreting Provider: Araceli Phelps MD Consult Discharge Plan - Plan Referrals: Rosaline Foote, [facility] [Primary Care Provider] - __ (1) Squamous cell lung cancer Qualifiers: Laterality: left Qualified Code(s): C34.92 - Malignant neoplasm of unspecified part of left bronchus or lung (3) Anemia Qualifiers: Anemia type: unspecified type Qualified Code(s): D64.9 - Anemia, unspecified
[2018-08-07] MEDS: Levofloxacin 750 MG/150 ML 750 MG/150 ML BAG IVPB SCH (08:55)
[2018-08-07] MEDS: Aspirin 325 MG TABLET PO SCH (08:55)
[2018-08-07] MEDS: Budesonide/Formoterol 160/4.5 1 PUFF INH IH SCH ×2 (11:52→21:55)
[2018-08-07] MEDS: Levalbuterol Neb 0.63 MG/3 ML IH SCH ×3 (11:53→21:55)
[2018-08-07] MEDS: Insulin LISPRO 300 UNITS/3 ML VIAL SQ SCH ×2 (12:31→17:44)
[2018-08-07] MEDS ORDERED: D5% in Water 1,000 ML IVC PRN (14:35)
[2018-08-07] MEDS ORDERED: Dextrose Gel 15 GM/37.5 ML TUBE PO PRN ×2 (14:35)
[2018-08-07] MEDS ORDERED: *HR* Dextrose 50 % in Water (Syg) 50 ML SYRINGE IVP PRN (14:35)
[2018-08-07 19:02] LABS: ABG Base Excess -2 mEq/L (-2 to 3); ABG HCO3 22 mEq/L (21-27); ABG Oxygen Saturation 90 % (95-98); ABG PCO2 29 mmHg (35-45); ABG PH 7.47 pH Units (7.32-7.45); ABG PO2 54 mmHg (85-104); ABG TCO2 22 mEq/L (20-26)
[2018-08-08] MEDS: MethylPREDNISolone 40 MG/ML VIAL IVP SCH ×4 (01:08→17:41)
[2018-08-08] MEDS: Piperacillin/Tazobactam 3.375 GM in 0.9 % Sodium Chloride Mini Bag 100 ML IVPB SCH ×3 (03:01→21:08)
[2018-08-08] MEDS: Levalbuterol Neb 0.63 MG/3 ML IH SCH ×4 (03:22→21:39)
[2018-08-08 05:30] LABS: Basophils % 0.1 %; Hematocrit 26.2 % (37.5-50.1); Hemoglobin 8.7 g/dL (12.9-16.9); Lymphocytes # 0.6 K/mcL (0.6-4.6); Lymphocytes % 2.6 %; Mean Corpuscular HGB Conc 33.2 g/dL (31.6-35.5); Mean Corpuscular Hemoglobin 28.2 pg (28.0-33.3); Mean Corpuscular Volume 85.1 fL (83.0-100.0); Monocytes # 0.7 K/mcL (0.0-1.3); Neutrophils # 19.8 K/mcL (1.6-8.9); Nucleated Red Blood Cells 0.1 /100 WBC (0); Platelet Count 298 K/mcL (140-400); Red Blood Count 3.08 M/mcL (4.19-5.50); Red Cell Distribution Width 17.6 % (11.5-14.5); Segmented Neutrophils % 90.3 %
[2018-08-08] MEDS: *HR* Heparin 5,000 UNIT/ML VIAL SQ SCH ×3 (06:20→21:11)
[2018-08-08 07:21] LABS: BUN/Creatinine Ratio 33 (6-26); Blood Urea Nitrogen 28 mg/dL (8-23); Calcium 8.3 mg/dL (8.6-10.3); Carbon Dioxide 21 mEq/L (23-29); Chloride 106 mEq/L (98-107); Glucose 180 mg/dL (70-105); Osmolality,Calculated 294 (280-300); Sodium 137 mEq/L (136-145); eGFR For Non-African Americans > 60 (> 60)
[2018-08-08] MEDS ORDERED: *HR* Promethazine 25 MG/ML VIAL IVP PRN (08:50)
[2018-08-08] MEDS: Levofloxacin 750 MG/150 ML 750 MG/150 ML BAG IVPB SCH (09:21)
[2018-08-08] MEDS: Aspirin 325 MG TABLET PO SCH (09:21)
[2018-08-08] MEDS: Insulin LISPRO 300 UNITS/3 ML VIAL SQ SCH ×3 (09:22→16:35)
[2018-08-08] MEDS: Budesonide/Formoterol 160/4.5 1 PUFF INH IH SCH ×2 (09:48→21:39)
--- NOTE | 2018-08-08 11:59 | Internal Med Progress Note ---
Hospitalist Progress Note - Encounter Date of Encounter: 08/08/18 Time of Encounter: 11:57 - Subjective Interval History: Evaluated patient earlier today. His oxygen requirement has continued to increase. He is currently on BiPAP. This was just put on. He is tolerating it well so far. Denies any chest pain or palpitations. No nausea or vomiting. No fever reported overnight - Exam Vitals: Temp Pulse Resp BP Pulse Ox 98.9 F 101 39 118/79 97 08/08/18 11:27 08/08/18 11:27 08/08/18 11:27 08/08/18 11:27 08/08/18 11:27 Exam: General: Patient is alert, severe distress, oriented x 3 ENT: BiPAP mask in place. Mucous membranes moist Respiratory: Coarse breath sounds bilaterally. End expiratory wheezing. Cardiovascular: Tachycardia. s1 and s2 normal No clicks, rubs, gallops, or murmurs. No pedal edema Abdomen: Abdomen is soft, nontender. Bowel sounds are present Musculoskeletal: Spontaneously moving all extremities Skin: warm, dry, intact. Neuro: Alert oriented x 3 normal cranial nerves, no focal deficits - Assessment and Plan (1) Acute respiratory failure with hypoxia Current Visit: Yes Status: Acute Assessment and Plan: Due to pneumonia/COPD. Patient may also have radiation pneumonitis. On IV antibiotics, steroids, bronchodilators and BiPAP currently. Wean FiO2 as tolerated. High risk for complications. Discussed goals of care with patient. He wishes to have everything possible done at this time. He remains full code. (2) Severe sepsis Current Visit: Yes Status: Acute Assessment and Plan: Patient being treated for sepsis from healthcare associated pneumonia. Blood cultures are negative so far. Patient is currently on vancomycin, Zosyn and Levaquin. We will check pro calcitonin levels and de-escalate antibiotics based on that. WBC count elevated at 22 today but most likely because steroid use. High risk for complications (3) Squamous cell lung cancer Current Visit: Yes Status: Chronic Assessment and Plan: Follow up with oncology. If patient's clinical condition does not improve, we will consult oncology to evaluate for prognosis. (4) Anemia Current Visit: Yes Status: Chronic Assessment and Plan: Hemoglobin remained stable at 8.7. We will continue to monitor. (5) Hyponatremia Current Visit: Yes Status: Resolved Assessment and Plan: Now resolved (6) HCAP (healthcare-associated pneumonia) Current Visit: Yes Status: Acute Assessment and Plan: Management as above (7) Port-A-Cath in place Current Visit: Yes Status: Acute Assessment and Plan: Blood cultures have been negative. Port-A-Cath site looks clean. (8) COPD with acute exacerbation Current Visit: Yes Status: Acute Assessment and Plan: Continue bronchodilators and steroids. Continue antibiotics. 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 Current Visit: Yes Status: Chronic - Time Spent with Patient Total time spent is greater than 50% in coordination of care (as documented) at patient's floor/unit and/or counseling patient: Internal Medicine: Result - Labs CBC & Chem 7: 08/08/18 05:05 08/08/18 05:05 Labs: Short CBC 08/08/18 Range/Units 05:05 WBC 22.0 H (4.3-11.1) K/mcL Hgb 8.7 L (12.9-16.9) g/dL Hct 26.2 L (37.5-50.1) % Plt Count 298 (140-400) K/mcL Neutrophils # 19.8 H (1.6-8.9) K/mcL BMP 08/08/18 05:05 Sodium 137 Potassium 4.0 Chloride 106 Carbon Dioxide 21 L BUN 28 H Creatinine 0.86 Glucose 180 H Calcium 8.3 L - ABG Interpretation ABG results: ABG ABG pH 7.47 pH Units (7.32-7.45) H 08/07/18 18:59 ABG pCO2 29 mmHg (35-45) L 08/07/18 18:59 ABG pO2 54 mmHg (85-104) L 08/07/18 18:59 ABG O2 Saturation 90 % (95-98) L 08/07/18 18:59 PT/INR, D-dimer PT 14.0 Seconds (9.4-12.1) H 08/06/18 10:20 - Impressions Impressions Head CT 08/07/18 19:54 IMPRESSION: No significant change in appearance of the brain with lesion in the left frontal lobe and adjacent low attenuation likely related to vasogenic edema. D/ / Fawn Hawthorne MD / Fawn Hawthorne MD Interpreting Provider: Fawn Hawthorne MD Consult Discharge Plan - Plan Referrals: Rosaline Foote, CORPORATE STAFF ACCOUNTANT [Primary Care Provider] - (3) Squamous cell lung cancer Qualifiers: Laterality: left Qualified Code(s): C34.92 - Malignant neoplasm of unspecified part of left bronchus or lung (4) Anemia Qualifiers: Anemia type: unspecified type Qualified Code(s): D64.9 - Anemia, unspecified
[2018-08-08 19:41] LABS: Hematocrit 28.5 % (37.5-50.1); Hemoglobin 9.1 g/dL (12.9-16.9)
[2018-08-09] MEDS: Piperacillin/Tazobactam 3.375 GM in 0.9 % Sodium Chloride Mini Bag 100 ML IVPB SCH ×2 (02:46→11:42)
[2018-08-09] MEDS: Levalbuterol Neb 0.63 MG/3 ML IH SCH ×4 (04:03→21:59)
[2018-08-09 04:35] LABS: Hematocrit 26.7 % (37.5-50.1); Hemoglobin 8.2 g/dL (12.9-16.9); Mean Corpuscular HGB Conc 30.7 g/dL (31.6-35.5); Mean Corpuscular Hemoglobin 27.7 pg (28.0-33.3); Mean Corpuscular Volume 90.2 fL (83.0-100.0); Mean Platelet Volume 10.6 fL (9.4-12.4); Nucleated Red Blood Cells 0.6 /100 WBC (0); Platelet Count 284 K/mcL (140-400); Red Blood Count 2.96 M/mcL (4.19-5.50); Red Cell Distribution Width 17.9 % (11.5-14.5)
[2018-08-09 04:53] LABS: BUN/Creatinine Ratio 46 (6-26); Blood Urea Nitrogen 40 mg/dL (8-23); Calcium 8.4 mg/dL (8.6-10.3); Carbon Dioxide 22 mEq/L (23-29); Chloride 107 mEq/L (98-107); Glucose 148 mg/dL (70-105); Osmolality,Calculated 303 (280-300); Sodium 140 mEq/L (136-145); eGFR For Non-African Americans > 60 (> 60)
[2018-08-09] MEDS: *HR* Heparin 5,000 UNIT/ML VIAL SQ SCH ×3 (05:03→21:29)
[2018-08-09] MEDS: MethylPREDNISolone 40 MG/ML VIAL IVP SCH ×2 (05:05→18:21)
[2018-08-09 05:08] LABS: Lymphocytes # 1.1 K/mcL (0.6-4.6); Neutrophils # 17.9 K/mcL (1.6-8.9); Platelet Estimate Normal (Normal)
[2018-08-09] MEDS: Levofloxacin 750 MG/150 ML 750 MG/150 ML BAG IVPB SCH (09:05)
[2018-08-09] MEDS: Pantoprazole 40 MG VIAL IVP SCH ×2 (09:05→18:21)
[2018-08-09] MEDS: Aspirin 325 MG TABLET PO SCH (09:12)
[2018-08-09] MEDS: Insulin LISPRO 300 UNITS/3 ML VIAL SQ SCH ×3 (09:14→16:17)
[2018-08-09] MEDS: Budesonide/Formoterol 160/4.5 1 PUFF INH IH SCH ×2 (09:14→21:58)
[2018-08-09] MEDS ORDERED: Aminoglycoside Consult 1 EACH MC ONE (12:46)
--- NOTE | 2018-08-09 13:55 | Internal Med Progress Note ---
Hospitalist Progress Note - Encounter Date of Encounter: 08/09/18 Time of Encounter: 13:50 - Subjective Interval History: Evaluated patient earlier today with family at bedside. She is seen to be doing much better. Was tolerating oral diet today. He had an episode of emesis yesterday with blood-tinged liquid which was positive for blood on lab testing. He has not had further episodes since then. He continues to use BiPAP at bedtime. He does appear to be breathing mostly through his mouth. No fever or chills reported overnight. - Exam Vitals: Temp Pulse Resp BP Pulse Ox 98.2 F 112 20 110/67 99 08/09/18 11:14 08/09/18 11:14 08/09/18 11:14 08/09/18 11:14 08/09/18 11:14 Exam: General: Patient is alert, moderate distress, oriented x 3 ENT: Mucous membranes moist Respiratory: Coarse breath sounds bilaterally. Prolonged expiratory phase. Cardiovascular: Regular rate and rhythm. s1 and s2 normal No clicks, rubs, gallops, or murmurs. No pedal edema Abdomen: Abdomen is soft, nontender. Bowel sounds are present Musculoskeletal: Spontaneously moving all extremities Skin: warm, dry, intact. Neuro: Alert oriented x 3 normal cranial nerves, no focal deficits - Assessment and Plan (1) Acute respiratory failure with hypoxia Current Visit: Yes Status: Acute (2) Severe sepsis Current Visit: Yes Status: Acute (3) Squamous cell lung cancer Current Visit: Yes Status: Chronic (4) Anemia Current Visit: Yes Status: Chronic (5) Hyponatremia Current Visit: Yes Status: Resolved (6) HCAP (healthcare-associated pneumonia) Current Visit: Yes Status: Acute (7) Port-A-Cath in place Current Visit: Yes Status: Acute (8) COPD with acute exacerbation Current Visit: Yes Status: Acute (9) DVT prophylaxis Current Visit: Yes Status: Acute (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 Pro Calcitonin levels are normal. We will de-escalate antibiotics and complete a short course of antibiotics. Chest x-ray does show bilateral airspace disease. Leukocytosis improving. We will continue O2 supplementation and wean FiO2 as tolerated. Continue bronchodilators. Taper steroids. For his anemia and hemoptysis/hematemesis, patient will be kept nothing by mouth after midnight. Started on IV Protonix. Consult GI tomorrow for evaluation. Will monitor hemoglobin levels. Patient is tachycardic most likely due to bronchodilator use. Will check TSH level. BUN trending up most likely due to steroid use. - Time Spent with Patient Total time spent is greater than 50% in coordination of care (as documented) at patient's floor/unit and/or counseling patient: Internal Medicine: Result - Labs CBC & Chem 7: 08/09/18 03:36 08/09/18 03:36 Labs: Short CBC 08/08/18 08/09/18 Range/Units 19:18 03:36 WBC 19.0 H (4.3-11.1) K/mcL Hgb 9.1 L 8.2 L (12.9-16.9) g/dL Hct 28.5 L 26.7 L (37.5-50.1) % Plt Count 284 (140-400) K/mcL Neutrophils # 17.9 H (1.6-8.9) K/mcL BMP 08/09/18 03:36 Sodium 140 Potassium 4.0 Chloride 107 Carbon Dioxide 22 L BUN 40 H Creatinine 0.87 Glucose 148 H Calcium 8.4 L - ABG Interpretation ABG results: ABG ABG pH 7.47 pH Units (7.32-7.45) H 08/07/18 18:59 ABG pCO2 29 mmHg (35-45) L 08/07/18 18:59 ABG pO2 54 mmHg (85-104) L 08/07/18 18:59 ABG O2 Saturation 90 % (95-98) L 08/07/18 18:59 PT/INR, D-dimer PT 14.0 Seconds (9.4-12.1) H 08/06/18 10:20 - Impressions Impressions Chest X-Ray 08/09/18 08:19 IMPRESSION: 1. Bilateral airspace disease, likely combination of pneumonia, malignancy and atelectasis. D/ / Lei Clarke MD / Lei Clarke MD Interpreting Provider: Lei Clarke MD Consult Discharge Plan - Plan Referrals: Rosaline Foote, BULL GANG SUPERVISOR [Primary Care Provider] - (3) Squamous cell lung cancer Qualifiers: Laterality: left Qualified Code(s): C34.92 - Malignant neoplasm of unspecified part of left bronchus or lung (4) Anemia Qualifiers: Anemia type: unspecified type Qualified Code(s): D64.9 - Anemia, unspecified
[2018-08-09 14:21] LABS: Hemoglobin 8.7 g/dL (12.9-16.9)
[2018-08-09] MEDS: Doxycycline 100 MG CAPSULE PO SCH (21:26)
[2018-08-10] MEDS: Levalbuterol Neb 0.63 MG/3 ML IH SCH ×4 (04:26→22:14)
[2018-08-10 04:29] LABS: ABG Base Excess 1 mEq/L (-2 to 3); ABG HCO3 24 mEq/L (21-27); ABG Oxygen Saturation 83 % (95-98); ABG PCO2 32 mmHg (35-45); ABG PH 7.49 pH Units (7.32-7.45); ABG PO2 43 mmHg (85-104); ABG TCO2 25 mEq/L (20-26)
[2018-08-10] MEDS: Pantoprazole 40 MG VIAL IVP SCH ×2 (06:02→17:16)
[2018-08-10] MEDS: *HR* Heparin 5,000 UNIT/ML VIAL SQ SCH ×3 (06:02→21:14)
[2018-08-10] MEDS: MethylPREDNISolone 40 MG/ML VIAL IVP SCH ×2 (06:02→17:16)
[2018-08-10 07:05] LABS: Hematocrit 25.5 % (37.5-50.1); Mean Corpuscular HGB Conc 31.4 g/dL (31.6-35.5); Mean Corpuscular Hemoglobin 27.6 pg (28.0-33.3); Mean Corpuscular Volume 87.9 fL (83.0-100.0); Mean Platelet Volume 10.5 fL (9.4-12.4); Nucleated Red Blood Cells 0.6 /100 WBC (0); Platelet Count 320 K/mcL (140-400); Red Cell Distribution Width 17.9 % (11.5-14.5)
[2018-08-10 07:32] LABS: BUN/Creatinine Ratio 35 (6-26); Blood Urea Nitrogen 24 mg/dL (8-23); Calcium 8.3 mg/dL (8.6-10.3); Carbon Dioxide 24 mEq/L (23-29); Chloride 106 mEq/L (98-107); Glucose 122 mg/dL (70-105); Osmolality,Calculated 293 (280-300); Potassium 4.2 mEq/L (3.5-5.1); Sodium 139 mEq/L (136-145); eGFR For Non-African Americans > 60 (> 60)
[2018-08-10 08:41] LABS: Anisocytosis 1+ (Not Present)
[2018-08-10 08:42] LABS: Hypochromasia Present (Not Present); Platelet Estimate Normal (Normal); Polychromasia 1+ (Not Present)
[2018-08-10 08:47] LABS: Lymphocytes # 0.7 K/mcL (0.6-4.6); Monocytes # 0.2 K/mcL (0.0-1.3)
[2018-08-10] MEDS: Insulin LISPRO 300 UNITS/3 ML VIAL SQ SCH ×4 (08:50→21:13)
[2018-08-10] MEDS: Budesonide/Formoterol 160/4.5 1 PUFF INH IH SCH ×2 (10:31→22:14)
[2018-08-10 11:03] LABS: ABG Base Excess 2 mEq/L (-2 to 3); ABG HCO3 24 mEq/L (21-27); ABG Oxygen Saturation 98 % (95-98); ABG PCO2 31 mmHg (35-45); ABG PO2 95 mmHg (85-104); ABG TCO2 25 mEq/L (20-26); Blood Gas PEEP 8 cm H2O; Blood Gas Respiration Rate 8
--- NOTE | 2018-08-10 12:15 | Internal Med Progress Note ---
Hospitalist Progress Note - Encounter Date of Encounter: 08/10/18 Time of Encounter: 10:10 - Subjective Interval History: Patient sitting up in chair. Feels that his mouth is dry. He did desaturate earlier this morning while he was on high flow nasal cannula. He has since been placed on BiPAP with improvement in his oxygen saturation. denies any new episodes of hematemesis or hemoptysis. - Exam Vitals: Temp Pulse Resp BP Pulse Ox 98.7 F 104 20 117/85 95 08/10/18 11:09 08/10/18 11:09 08/10/18 11:08/10/18 11:08/10/18 11:09 Exam: General: Patient is alert, moderate distress, oriented x 3 ENT: Mucous membranes moist Respiratory: Coarse breath sounds bilaterally. End expiratory wheezing. Cardiovascular: Regular rate and rhythm. s1 and s2 normal No clicks, rubs, gallops, or murmurs. No pedal edema Abdomen: Abdomen is soft, nontender. Bowel sounds are present Musculoskeletal: Spontaneously moving all extremities Skin: warm, dry, intact. Neuro: Alert oriented x 3 normal cranial nerves, no focal deficits - Assessment and Plan (1) Acute respiratory failure with hypoxia Current Visit: Yes Status: Acute (2) Severe sepsis Current Visit: Yes Status: Acute (3) Squamous cell lung cancer Current Visit: Yes Status: Chronic (4) Anemia Current Visit: Yes Status: Chronic (5) Hyponatremia Current Visit: Yes Status: Resolved (6) HCAP (healthcare-associated pneumonia) Current Visit: Yes Status: Acute (7) Port-A-Cath in place Current Visit: Yes Status: Acute (8) COPD with acute exacerbation Current Visit: Yes Status: Acute (9) DVT prophylaxis Current Visit: Yes Status: Acute (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 Continue O2 supplementation with BiPAP as needed. Wean FiO2 as tolerated. Continue antibiotic treatment. Continue steroids. Hemoglobin 8 today. Discussed with patient and family. Although they would like to proceed with endoscopy eventually, they do not want it to be done presently. As such we will place him on a full liquid diet. Informed gastroenterology of this. We will continue PPI and monitor blood counts closely. We will also need to wait for his respiratory function to improve prior to doing any procedure. Continue to monitor blood sugars. 193 this morning. We will add long-acting insulin. Blood pressure is well controlled. Patient wishes to remain full code at this time - Time Spent with Patient Total time spent is greater than 50% in coordination of care (as documented) at patient's floor/unit and/or counseling patient: Internal Medicine: Result - Labs CBC & Chem 7: 08/10/18 06:01 08/10/18 06:01 Labs: Short CBC 08/09/18 08/10/18 Range/Units 12:00 06:01 WBC 17.2 H (4.3-11.1) K/mcL Hgb 8.7 L 8.0 L (12.9-16.9) g/dL Hct 28.0 L 25.5 L (37.5-50.1) % Plt Count 320 (140-400) K/mcL Neutrophils # 16.0 H (1.6-8.9) K/mcL BMP 08/10/18 06:01 Sodium 139 Potassium 4.2 Chloride 106 Carbon Dioxide 24 BUN 24 H Creatinine 0.68 L Glucose 122 H Calcium 8.3 L - ABG Interpretation ABG results: ABG ABG pH 7.50 pH Units (7.32-7.45) H 08/10/18 10:50 ABG pCO2 31 mmHg (35-45) L 08/10/18 10:50 ABG pO2 95 mmHg (85-104) 08/10/18 10:50 ABG O2 Saturation 98 % (95-98) 08/10/18 10:50 PT/INR, D-dimer PT 14.0 Seconds (9.4-12.1) H 08/06/18 10:20 - Impressions Impressions Chest X-Ray 08/09/18 08:19 IMPRESSION: 1. Bilateral airspace disease, likely combination of pneumonia, malignancy and atelectasis. D/ / Lei Clarke MD / Lei Clarke MD Interpreting Provider: Lei Clarke MD Consult Discharge Plan - Plan Referrals: Rosaline Foote, RETRIEVAL SPECIALIST [Primary Care Provider] - (3) Squamous cell lung cancer Qualifiers: Laterality: left Qualified Code(s): C34.92 - Malignant neoplasm of unspecified part of left bronchus or lung (4) Anemia Qualifiers: Anemia type: unspecified type Qualified Code(s): D64.9 - Anemia, unspecified
--- NOTE | 2018-08-10 12:52 | Gastroenterology Consult Note ---
<Gerardo Contreras - Last Filed: 08/10/18 12:50> Date of Encounter: 08/10/18 Time of Encounter: 10:30 - Assessment and plan (1) Anemia Current Visit: Yes Status: Chronic Assessment and plan: Hgb 13.3 on 06/26/2018, Hgb 10 on admission, and today Hgb 8. Gastric occult blood was positive. One episode of blood tinged emesis. Recommend EGD today to r/o esophagitis, gastritis, duodenitis, PUD, MW tear, or AVM. Patient and family were originally agreeable. They would now prefer to have the scope done at a later time. Qualifiers: Anemia type: unspecified type Qualified Code(s): D64.9 - Anemia, unspecified (2) Severe sepsis Current Visit: Yes Status: Acute Assessment and plan: Management per primary team. 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 Davey secondary to hypoxia and shortness of breath. Pateint had one episode of emesis which was blood tinged. Hgb 13.3 on 06/26/2018, Hgb 10 on admission, and today Hgb 8. Gastric occult blood was positive. He is sitting in chair on BiPAP. He has never had EGD or colonoscopy. Procedures: None NSAIDs: ASA Anticoagulation: None Past Med Surg Social Fam HX - Past Medical History Medical history: cancer, diabetes, hypertension Additional medical history: brain tumor, right side paralysis, lung cancer, brain cancer, and lymphnode; Psychiatric history: no psych history - Past Surgical History Surgical History: coronary bypass (CABG) Additional surgical history: triple bypass, cardiac stents, back surgery - Social History Smoking Status: Former smoker Smokeless Tobacco Status: No Alcohol use: occasionally Drug use: none - Family History Father Living Status: Age at : 72 Cause of : heart Hx Family Cardiac Disorders: Yes Hx Family Respiratory Disorders: Yes Hx Family Cancer: No Hx Family GI Disorders: No Hx Family Genitourinary Disorders: No Hx Family Endocrine Disorder: No Hx Family Musculoskeletal Disorders: No Hx Family Neuromuscular Disorders: No Hx Family Neurologic Disorders: No Hx Family HEENT Disorders: No Hx Family Autoimmune Disorders: No Hx Family Reproductive Disorders: No Hx Family Psychosocial Disorders: No Hx Family Medical Disorders: No Mother Living Status: Age at : 97 Cause of : old age Hx Family Cardiac Disorders: No Hx Family Respiratory Disorders: No Hx Family Cancer: Yes Hx Family GI Disorders: No Hx Family Genitourinary Disorders: No Hx Family Endocrine Disorder: No Hx Family Musculoskeletal Disorders: No Hx Family Neuromuscular Disorders: No Hx Family Neurologic Disorders: No Hx Family HEENT Disorders: No Hx Family Autoimmune Disorders: No Hx Family Reproductive Disorders: No Hx Family Psychosocial Disorders: No Hx Family Medical Disorders: No - Gastrointestinal Gastrointestinal: Present: as per HPI - Constitutional Constitutional: as per HPI - EENT Eyes: as per HPI Ears: Present: as per HPI Nose, mouth and throat: Present: as per HPI - Cardiovascular Cardiovascular ROS: Present: as per HPI - Respiratory Respiratory IM: Present: as per HPI - Genitourinary Genitourinary: Absent: change in color, Urinary frequency - Neurological ROS Neurological GI: Present: as per HPI - Hematologic/Lymphatic Hematologic/Lymphatic pediatric: Present: as per HPI - Musculoskeletal Musculoskeletal ROS GI: Present: as per HPI - Integumentary Integumentary GI: Present: as per HPI - Psychiatric ROS Psychiatric GI: Present: as per HPI - Endocrine Endocrine IM: Present: as per HPI - Constitutional Vitals: Temp Pulse Resp BP Pulse Ox 98.7 F 104 20 117/85 95 08/10/18 11:09 08/10/18 11:09 08/10/18 11:09 08/10/18 11:09 08/10/18 11:09 General appearance: Present: cooperative, A&O X 3, no acute distress, answers questions appropriately - Head Head exam: Present: atraumatic, normocephalic - Eye Eye exam: Present: normal appearance, sclera anicteric - ENT ENT exam: Present: mucous membranes dry - Neck Neck exam general surgery: Present: normal inspection, trachea midline - Respiratory Respiratory exam: Present: rhonchi, wheezes - Cardiovascular Cardiovascular exam: Present: RRR, +S1, +S2 - GI/Abdominal GI/Abdominal exam: Present: soft, no peritoneal signs. Absent: distended, firm, guarding, tenderness - Rectal Rectal exam: Present: deferred - Extremities Exam Extremities exam: Present: warm - Neurological Exam Neurological exam: Present: no focal deficits - Psychiatric Psychiatric exam: Present: normal affect, normal mood - Skin Skin exam: Present: dry, intact, normal color, warm Results - Labs CBC & Chem 7: 08/10/18 06:01 08/10/18 06:01 Labs: Last Result 08/10/18 06:01 Calcium 8.3 L Entire Visit 08/10/18 06:01 Hgb 8.0 L Hct 25.5 L - ABG ABG results: ABG ABG pH 7.50 pH Units (7.32-7.45) H 08/10/18 10:50 ABG pCO2 31 mmHg (35-45) L 08/10/18 10:50 ABG pO2 95 mmHg (85-104) 08/10/18 10:50 ABG O2 Saturation 98 % (95-98) 08/10/18 10:50 PT/INR, D-dimer PT 14.0 Seconds (9.4-12.1) H 08/06/18 10:20 - Impressions Impressions Chest X-Ray 08/09/18 08:19 IMPRESSION: 1. Bilateral airspace disease, likely combination of pneumonia, malignancy and atelectasis. D/ / Lei Clarke MD / Lei Clarke MD Interpreting Provider: Lei Clarke MD Consult Discharge Plan - Plan Referrals: Rosaline Foote CNP [Primary Care Provider] - <Herberth Romero - Last Filed: 08/10/18 17:12> Date of Encounter: 08/10/18 Time of Encounter: 14:00 - Time Spent With Patient Total time spent is greater than 50% in coordination of care (as documented) at patient's floor/unit and/or counseling patient: GI History of Present Illness - Data of Consult Requesting Physician: Darius Castillo MD - Consult Narrative History of present illness: Mr. Kahn is a 77 year old male - Constitutional Vitals: Temp Pulse Resp BP Pulse Ox 97.3 F L 100 20 106/75 90 08/10/18 16:22 08/10/18 16:22 08/10/18 16:22 08/10/18 16:22 08/10/18 16:22 Results - Labs CBC & Chem 7: 08/10/18 16:39 08/10/18 06:01 Labs: Last Result 08/10/18 06:01 Calcium 8.3 L Entire Visit 08/10/18 08/10/18 06:01 16:39 Hgb 8.0 L 7.7 L Hct 25.5 L 24.4 L - ABG ABG results: ABG ABG pH 7.50 pH Units (7.32-7.45) H 08/10/18 10:50 ABG pCO2 31 mmHg (35-45) L 08/10/18 10:50 ABG pO2 95 mmHg (85-104) 08/10/18 10:50 ABG O2 Saturation 98 % (95-98) 08/10/18 10:50 PT/INR, D-dimer PT 14.0 Seconds (9.4-12.1) H 08/06/18 10:20 - Attending Attestation I have personally performed a face to face evaluation on this patient. I have reviewed and agree with the care plan. History and Exam by me shows: Pt seen at the bedside. Denies epigastric pain. On examination: Abdomen is soft. Assessment: Patient with a history of metastatic small cell lung cancer with episode of hematemesis over the weekend. Currently no more vomiting and hemoglobin is stable. Recommendation: No need for endoscopy at this point follow H&H. Daily PPI.
[2018-08-10] MEDS: Aspirin 325 MG TABLET PO SCH (15:05)
[2018-08-10] MEDS: Doxycycline 100 MG CAPSULE PO SCH ×2 (15:06→21:10)
[2018-08-10 16:54] LABS: Hematocrit 24.4 % (37.5-50.1); Hemoglobin 7.7 g/dL (12.9-16.9)
[2018-08-11] MEDS: Levalbuterol Neb 0.63 MG/3 ML IH SCH ×4 (03:41→21:34)
[2018-08-11] MEDS: *HR* Heparin 5,000 UNIT/ML VIAL SQ SCH ×3 (05:22→21:13)
[2018-08-11] MEDS: Pantoprazole 40 MG VIAL IVP SCH ×2 (05:24→17:26)
[2018-08-11] MEDS: MethylPREDNISolone 40 MG/ML VIAL IVP SCH ×2 (05:29→17:26)
[2018-08-11 08:40] LABS: Basophils % 0.1 %; Eosinophils % 0.2 %; Hematocrit 25.5 % (37.5-50.1); Immature Granulocytes % 4.9 % (0-4); Lymphocytes # 0.7 K/mcL (0.6-4.6); Lymphocytes % 4.3 %; Mean Corpuscular HGB Conc 31.4 g/dL (31.6-35.5); Mean Corpuscular Hemoglobin 27.8 pg (28.0-33.3); Mean Corpuscular Volume 88.5 fL (83.0-100.0); Mean Platelet Volume 10.5 fL (9.4-12.4); Monocytes # 0.5 K/mcL (0.0-1.3); Monocytes % 2.9 %; Nucleated Red Blood Cells 0.4 /100 WBC (0); Platelet Count 310 K/mcL (140-400); Red Blood Count 2.88 M/mcL (4.19-5.50); Red Cell Distribution Width 18.2 % (11.5-14.5); Segmented Neutrophils % 87.6 %
[2018-08-11] MEDS: Doxycycline 100 MG CAPSULE PO SCH ×2 (08:51→21:11)
[2018-08-11] MEDS: Aspirin 325 MG TABLET PO SCH (08:51)
[2018-08-11] MEDS: Insulin DETEMIR 100 UNIT/ML X5UNITS SQ SCH (08:54)
[2018-08-11 08:57] LABS: BUN/Creatinine Ratio 42 (6-26); Blood Urea Nitrogen 28 mg/dL (8-23); Calcium 8.4 mg/dL (8.6-10.3); Carbon Dioxide 26 mEq/L (23-29); Chloride 107 mEq/L (98-107); Glucose 129 mg/dL (70-105); Osmolality,Calculated 295 (280-300); Potassium 4.1 mEq/L (3.5-5.1); Sodium 139 mEq/L (136-145); eGFR For Non-African Americans > 60 (> 60)
[2018-08-11] MEDS: Insulin LISPRO 300 UNITS/3 ML VIAL SQ SCH ×4 (09:08→21:12)
[2018-08-11] MEDS: Budesonide/Formoterol 160/4.5 1 PUFF INH IH SCH ×2 (09:52→21:34)
--- NOTE | 2018-08-11 12:45 | Internal Med Progress Note ---
Hospitalist Progress Note - Encounter Date of Encounter: 08/11/18 Time of Encounter: 12:44 - Subjective Interval History: Evaluated patient earlier today. Family present at bedside. Had an extensive discussion about plan of care and what to do next. Patient states that she is getting tired of being in the hospital and wishes to go home soon. He is p resently on high flow nasal cannula ( Krysta) and required BiPAP at night to keep sats greater than 88%. Current his family, he is eating better and seems to be doing better overall this morning. No fever or chills reported overnight - Exam Vitals: Temp Pulse Resp BP Pulse Ox 98.2 F 104 26 124/79 92 08/11/18 12:09 08/11/18 12:08/11/18 12:08/11/18 12:08/11/18 12:09 Exam: General: Patient is alert, moderate distress, oriented x 3 ENT: Mucous membranes moist; Krysta NC in place Respiratory: Coarse breath sounds bilaterally.. Cardiovascular: Regular rate and rhythm. s1 and s2 normal No clicks, rubs, gallops, or murmurs. No pedal edema Abdomen: Abdomen is soft, nontender. Bowel sounds are present Musculoskeletal: Spontaneously moving all extremities Skin: warm, dry, intact. Neuro: Alert oriented x 3 normal cranial nerves, no focal deficits - Assessment and Plan (1) Acute respiratory failure with hypoxia Current Visit: Yes Status: Acute Assessment and Plan: Multifactorial etiology-COPD exacerbation, possible pneumonia, possible radiation pneumonitis, underlying lung cancer. Has not shown much improvement in aeration despite aggressive care. Discussed goals of care with family. They would like to talk palliative care and go over different options. Based palliative care consultation. Patient appears to be getting frustrated with current progress. But he does not seem to be ready to move towards hospice either. However if the patient's condition does not improve in the next couple of days, I doubt he would have any significant improvement beyond the and strong consideration for hospice would be needed. Remains at high risk for complications. Presently still wishes to be full code. (2) Severe sepsis Current Visit: Yes Status: Acute Assessment and Plan: Sepsis resolved. Blood cultures have been negative. Procalcitonin level was normal. Complete oral antibiotic course. (3) Squamous cell lung cancer Current Visit: Yes Status: Chronic Assessment and Plan: Given the patient's condition has not improved, we may need to revisit goals of care as presently the patient wishes to get better to undergo chemotherapy. However this may not be feasible. Will consult oncology to evaluate patient and go over prognosis if he does not improve at this point. (4) Anemia Current Visit: Yes Status: Chronic Assessment and Plan: Hemoglobin levels dropped down to 7.7 yesterday but now 8 this morning. Bruits the subject of her blood transfusion. Not urgent. We will monitor blood counts again tomorrow and reassess. (5) Hyponatremia Current Visit: Yes Status: Resolved (6) HCAP (healthcare-associated pneumonia) Current Visit: Yes Status: Acute (7) Port-A-Cath in place Current Visit: Yes Status: Acute (8) COPD with acute exacerbation Current Visit: Yes Status: Acute Assessment and Plan: Patient currently on steroids, bronchodilators. Will have pulmonology reeva luate patient and give recommendations as patient's condition has not significantly improved overall. 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 DVT Prophylaxis: Continue subcutaneous heparin - Time Spent with Patient Total time spent is greater than 50% in coordination of care (as documented) at patient's floor/unit and/or counseling patient: Internal Medicine: Result - Labs CBC & Chem 7: 08/11/18 07:58 08/11/18 07:58 Labs: Short CBC 08/10/18 08/11/18 Range/Units 16:39 07:58 WBC 16.0 H (4.3-11.1) K/mcL Hgb 7.7 L 8.0 L (12.9-16.9) g/dL Hct 24.4 L 25.5 L (37.5-50.1) % Plt Count 310 (140-400) K/mcL Neutrophils # 14.0 H (1.6-8.9) K/mcL BMP 08/11/18 07:58 Sodium 139 Potassium 4.1 Chloride 107 Carbon Dioxide 26 BUN 28 H Creatinine 0.67 L Glucose 129 H Calcium 8.4 L - ABG Interpretation ABG results: ABG ABG pH 7.50 pH Units (7.32-7.45) H 08/10/18 10:50 ABG pCO2 31 mmHg (35-45) L 08/10/18 10:50 ABG pO2 95 mmHg (85-104) 08/10/18 10:50 ABG O2 Saturation 98 % (95-98) 08/10/18 10:50 PT/INR, D-dimer PT 14.0 Seconds (9.4-12.1) H 08/06/18 10:20 Consult Discharge Plan - Plan Referrals: Rosaline Foote, CAR SHAGGER [Primary Care Provider] - (3) Squamous cell lung cancer Qualifiers: Laterality: left Qualified Code(s): C34.92 - Malignant neoplasm of unspecified part of left bronchus or lung (4) Anemia Qualifiers: Anemia type: unspecified type Qualified Code(s): D64.9 - Anemia, unspecified
[2018-08-11] MEDS ORDERED: Furosemide 40 MG/4 ML VIAL IVP ONE (13:09)
--- NOTE | 2018-08-11 13:18 | Pulmonology Progress Note ---
Date of Encounter: 08/11/18 Time of Encounter: 10:00 Objective PUL Vital signs: Last Vital Signs Temp 98.2 F 08/11/18 12:09 Pulse 104 08/11/18 12:09 Resp 26 08/11/18 12:09 BP 124/79 08/11/18 12:09 Pulse Ox 92 08/11/18 12:09 Results - Laboratory Findings CBC and BMP: 08/11/18 07:58 08/11/18 07:58 ABG ABG pH 7.50 pH Units (7.32-7.45) H 08/10/18 10:50 ABG pCO2 31 mmHg (35-45) L 08/10/18 10:50 ABG pO2 95 mmHg (85-104) 08/10/18 10:50 ABG O2 Saturation 98 % (95-98) 08/10/18 10:50 PT/INR, D-dimer PT 14.0 Seconds (9.4-12.1) H 08/06/18 10:20 Abnormal lab findings: Abnormal lab results WBC 16.0 K/mcL (4.3-11.1) H 08/11/18 07:58 RBC 2.88 M/mcL (4.19-5.50) L 08/11/18 07:58 Hgb 8.0 g/dL (12.9-16.9) L 08/11/18 07:58 Hct 25.5 % (37.5-50.1) L 08/11/18 07:58 MCH 27.8 pg (28.0-33.3) L 08/11/18 07:58 MCHC 31.4 g/dL (31.6-35.5) L 08/11/18 07:58 RDW 18.2 % (11.5-14.5) H 08/11/18 07:58 Immature Gran % 4.9 % (0-4) H 08/11/18 07:58 2.0 % (0) H 08/10/18 06:01 14.0 K/mcL (1.6-8.9) H 08/11/18 07:58 0.5 K/mcL (0.6-4.6) L 08/07/18 05:21 Nucleated RBCs/100 WBC 0.4 /100 WBC (0) H 08/11/18 07:58 1+ (Not Present) A 08/10/18 06:01 Present (Not Present) A 08/10/18 06:01 1+ (Not Present) A 08/10/18 06:01 PT 14.0 Seconds (9.4-12.1) H 08/06/18 10:20 ABG pH 7.50 pH Units (7.32-7.45) H 08/10/18 10:50 ABG pCO2 31 mmHg (35-45) L 08/10/18 10:50 ABG pO2 43 mmHg (85-104) L* 08/10/18 04:22 ABG O2 Saturation 83 % (95-98) L 08/10/18 04:22 Sodium 133 mEq/L (136-145) L 08/07/18 05:21 Chloride 97 mEq/L (98-107) L 08/06/18 10:20 Carbon Dioxide 22 mEq/L (23-29) L 08/09/18 03:36 BUN 28 mg/dL (8-23) H 08/11/18 07:58 0.67 mg/dL (0.70-1.30) L 08/11/18 07:58 42 (6-26) H 08/11/18 07:58 Glucose 129 mg/dL (70-105) H 08/11/18 07:58 POC Glucose 220 mg/dL (70-99) H 08/11/18 12:11 303 (280-300) H 08/09/18 03:36 Lactic Acid 4.2 mmol/L (0.5-2.2) H* 08/07/18 09:10 Calcium 8.4 mg/dL (8.6-10.3) L 08/11/18 07:58 B-Natriuretic Peptide 158 pg/mL (Less than 100) H 08/06/18 10:20 5.9 g/dL (6.4-8.9) L 08/06/18 10:20 2.8 g/dL (3.5-5.7) L 08/06/18 10:20 0.9 (1.1-2.2) L 08/06/18 10:20 Ur Specific [place] > 1.030 (1.010-1.025) H 08/06/18 14:35 Gastric Occult Blood Positive (Negative) A 08/08/18 18:30 Vancomycin Trough 13 mcg/mL (5-10) H 08/08/18 00:08 - Clinical Findings Intake & Output: Intake & Output 08/10/18 08/11/18 08/11/18 23:59 07:59 15:59 Intake Total 300 / 300 60 / 420 360 / 420 Output Total 1000 / 1000 200 / 200 Balance -700 / -700 -140 / 220 360 / 220 Weight 82.9 kg Consult Discharge Plan - Plan Referrals: Rosaline Foote, PROJECT MANAGER/DESIGN MANAGER [Primary Care Provider] -
--- NOTE | 2018-08-11 14:41 | Oncology Inp Consult Note ---
<Emmanuel Marie - Last Filed: 08/11/18 16:56> Date of Encounter: 08/11/18 Time of Encounter: 16:54 - Data of Consult Requesting Physician: Darius Castillo MD Primary Care Provider: Rosaline Foote CNP Medications and Allergies Aspirin 325 mg PO DAILY 06/29/18 [History] BuPROPion SR (12 HR) [Wellbutrin SR] 100 mg PO DAILY 06/29/18 [History] Docusate [Colace] 100 mg PO BID PRN #60 capsule 06/29/18 [Rx] Glucosamine Sulfate Dipot Chlr [Glucosamine] 2,000 mg PO BID 06/29/18 [History] Lisinopril [Zestril] 10 mg PO DAILY 06/29/18 [History] [place]-3/Dha/Epa/Fish Oil [Fish Oil 1,000 mg Softgel] 1,000 mg PO BID 06/29/18 [H istory] Simvastatin [Zocor] 80 mg PO DAILY 06/29/18 [History] Vitamin E 800 unit PO DAILY 06/29/18 [History] Dexamethasone [Decadron] 4 mg PO AD #45 tab 07/06/18 [Rx] Magic Mouthwash [Magic Mouthwash BLM] 10 ml PO QID PRN #240 ml 07/28/18 [Rx] Lidocaine/Prilocaine [Emla] 1 appl TP AD PRN 08/06/18 [History] Zolpidem [Ambien] 10 mg PO HS PRN 08/06/18 [History] Allergy/AdvReac Type Severity Reaction Status Date / Time No Known Allergies Allergy Verified 07/10/18 10:42 Consult Discharge Plan - Plan Referrals: Rosaline Foote CNP [Primary Care Provider] - Inpatient Charges Provider: Dr. Lizett Marie Consult - Inpatient: [id number] - Attending Attestation I examined this patient and my medical decision-making was reviewed with the Advanced Practice Nurse. I agree with the documented findings, disposition and treatment plan as described except to the extent set forth below. -Continues on high flow O2 Krysta and Bipap at night. His SOB has not improved. -Palliative care c/s. -Family would like to give him a few more days to see if his clinical condition will improve. -He has been transitioned to PO antibiotics -If he does not clinically improve, the family will likely pursue hospice which is appropriate. 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 He continues on prednisone every other day. PDL1<1%, he was planed to start outpatient chemotherapy on 08/06/2018, however, he presented hypotensive and hypoxic, he was transferred to ED. CTA of the chest 08/06/2018 revealed redemonstration of a left upper lung cancer extending along the left anterior, medial and lateral pleural surface as well as into the left hilar area with encasement of vessels and bronchi, esophagitis, severe emphysema, increase in WILIAM nodule, nodularity along the left pleural space. Despite aggressive treatment of his possible pneumonia and COPD exacerbation he has not improved and continues on high flow O2 Krysta and Bipap at night. Plan: Pulmonology consulted for any further supportive recommendations Discussed case with radiation oncologist Dr. Ratliff, recommends against radiotherapy to WILIAM lesion as this would not offer meaningful benefit in patients respiratory status We discussed aggressive vs. less aggressive treatment options, the hospice philosophy was discussed Patient seems resistant to the idea of hospice, he wishes to continue to pursue chemotherapy as outpatient and would like to continue aggressive management and oxygen supplementation over the next 1-2 days to see if respiratory status improves. If he continues to decline or does not improve despite these measures, we would recommend transition to hospice Patients at bedside appears realistic regarding overall goals and agrees with plan of care Prognosis is guarded We will continue to follow along for goals of care discussions, we appreciate the continued assistance of palliative care Qualifiers: Laterality: left Qualified Code(s): C34.92 - Malignant neoplasm of unspecified part of left bronchus or lung - Data of Consult Patient: known to practice within the last 3 years Consult date: 08/11/18 Requesting Physician: Darius Castillo MD Primary Care Provider: Rosaline Foote CNP - Consult Narrative Reason for consult: Squamous cell carcinoma History of present illness: Mr. 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 He continues on prednisone every other day. PDL1<1%, he was planed to start outpatient chemotherapy on 08/06/2018, however, he presented hypotensive and hypoxic, he was transferred to ED. CTA of the chest 08/06/2018 revealed redemonstration of a left upper lung cancer extending along the left anterior, medial and lateral pleural surface as well as into the left hilar area with encasement of vessels and bronchi, esophagitis, severe emphysema, increase in WILIAM nodule, nodularity along the left pleural space. Despite aggressive treatment of his possible pneumonia and COPD exacerbation he has not improved and continues on high flow O2 Krysta and Bipap at night. Pulmonology has been consulted. The idea of palliative care consultation has been discussed with patient/family and oncology consultation also requested for further goals of care discussion. Past Med Surg Social Fam HX - Past Medical History Medical history: cancer, diabetes, hypertension Additional medical history: brain tumor, right side paralysis, lung cancer, brain cancer, and lymphnode; Psychiatric history: no psych history - Past Surgical History Surgical History: coronary bypass (CABG) Additional surgical history: triple bypass, cardiac stents, back surgery - Social History Smoking Status: Former smoker Smokeless Tobacco Status: No Alcohol use: occasionally Drug use: none - Family History Father Living Status: Age at : 72 Cause of : heart Hx Family Cardiac Disorders: Yes Hx Family Respiratory Disorders: Yes Hx Family Cancer: No Hx Family GI Disorders: No Hx Family Genitourinary Disorders: No Hx Family Endocrine Disorder: No Hx Family Musculoskeletal Disorders: No Hx Family Neuromuscular Disorders: No Hx Family Neurologic Disorders: No Hx Family HEENT Disorders: No Hx Family Autoimmune Disorders: No Hx Family Reproductive Disorders: No Hx Family Psychosocial Disorders: No Hx Family Medical Disorders: No Mother Living Status: Age at : 97 Cause of : old age Hx Family Cardiac Disorders: No Hx Family Respiratory Disorders: No Hx Family Cancer: Yes Hx Family GI Disorders: No Hx Family Genitourinary Disorders: No Hx Family Endocrine Disorder: No Hx Family Musculoskeletal Disorders: No Hx Family Neuromuscular Disorders: No Hx Family Neurologic Disorders: No Hx Family HEENT Disorders: No Hx Family Autoimmune Disorders: No Hx Family Reproductive Disorders: No Hx Family Psychosocial Disorders: No Hx Family Medical Disorders: No Oncology - Exam - Constitutional General appearance: cooperative, no acute distress, no febrile Exam: chronically ill appearing - Head Head exam: Present: atraumatic - ENT ENT exam: Present: mucous membranes dry - Respiratory Respiratory exam: Present: decreased breath sounds. Absent: respiratory distress - Cardiovascular Cardiovascular exam: Present: RRR, tachycardia - GI/Abdominal GI/Abdominal exam: Present: normal bowel sounds, soft. Absent: tenderness - Extremities Exam Extremities exam: Present: normal inspection. Absent: calf tenderness - Neurological Exam Neurological exam: Present: alert, oriented X3, no focal deficits, strengths equal and symetr throughout - Psychiatric Psychiatric exam: Present: anxious - Skin Skin exam: Present: dry, pallor, warm
--- NOTE | 2018-08-11 16:00 | Pulmonology Consult Note ---
Date of Encounter: 08/11/18 Time of Encounter: 16:00 Assessment and Plan (1) Acute respiratory failure with hypoxia Current Visit: Yes Status: Acute Patient presently with acute respiratory failure with hypoxia most likely progression of his left sided lung cancer most likely reversible cause can be subtle groundglass opacities on the normal lung suggestive of possible congestive heart failure also complicated by possible pneumonia agree with the broad-spectrum antibiotic this can be de-escalate soon as the procalcitonin level is normal . The only. reversible causes of inflammatory changes due to COPD exacerbation and diurese as that will help in reducing the hydrostatic pulmonary edema component. Spoke with patient and her family about the reversible causes For the poor prognosis patient on this discussion with the palliative care team and change his CODE STATUS to DNR comfort care DO NOT INTUBATE if he turns around. The current conservative measures patient will like to pursue outpatient chemotherapy if patient continues to decline he wants to be hospice. (2) COPD with acute exacerbation Current Visit: Yes Status: Acute To continue scheduled bronchodilators and steroids. 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 Current Visit: Yes Status: Chronic patient has extensive progression of the stage IV squamous cell carcinoma poor prognosis patient is not a candidate for radiation therapy possible palliative chemotherapy as an outpatient if he survives this admission History of Present Illness Consult date: 08/11/18 Requesting physician: Darius Castillo Reason for consult: COPD, abnormal CXR/CT Chief complaint: Worsening shortness of breath History of present illness: 77-year-old male with past medical history significant for COPD, stage IV squamous cell carcinoma of left side, comes with worsening shortness of breath acute on chronic respiratory failure now BiPAP dependent patient says his shortness of breath is lot better but cough or sputum production denies any hemoptysis denies any chest pain chest tightness denies any palpitation or syncope patient denies any headache and denies any symptoms pertaining to focal neurological deficit. Pulmonary was consult that for evaluation of this persistent V/Q mismatch present during his acute on chronic hypoxic respiratory failure Past Med Surg Social Fam HX - Past Medical History Medical history: cancer, diabetes, hypertension Additional medical history: brain tumor, right side paralysis, lung cancer, brain cancer, and lymphnode; Psychiatric history: no psych history - Past Surgical History Surgical History: coronary bypass (CABG) Additional surgical history: triple bypass, cardiac stents, back surgery - Social History Smoking Status: Former smoker Smokeless Tobacco Status: No Alcohol use: occasionally Drug use: none - Family History Father Living Status: Age at : 72 Cause of : heart Hx Family Cardiac Disorders: Yes Hx Family Respiratory Disorders: Yes Hx Family Cancer: No Hx Family GI Disorders: No Hx Family Genitourinary Disorders: No Hx Family Endocrine Disorder: No Hx Family Musculoskeletal Disorders: No Hx Family Neuromuscular Disorders: No Hx Family Neurologic Disorders: No Hx Family HEENT Disorders: No Hx Family Autoimmune Disorders: No Hx Family Reproductive Disorders: No Hx Family Psychosocial Disorders: No Hx Family Medical Disorders: No Mother Living Status: Age at : 97 Cause of : old age Hx Family Cardiac Disorders: No Hx Family Respiratory Disorders: No Hx Family Cancer: Yes Hx Family GI Disorders: No Hx Family Genitourinary Disorders: No Hx Family Endocrine Disorder: No Hx Family Musculoskeletal Disorders: No Hx Family Neuromuscular Disorders: No Hx Family Neurologic Disorders: No Hx Family HEENT Disorders: No Hx Family Autoimmune Disorders: No Hx Family Reproductive Disorders: No Hx Family Psychosocial Disorders: No Hx Family Medical Disorders: No Medications and Allergies Aspirin 325 mg PO DAILY 06/29/18 [History] BuPROPion SR (12 HR) [Wellbutrin SR] 100 mg PO DAILY 06/29/18 [History] Docusate [Colace] 100 mg PO BID PRN #60 capsule 06/29/18 [Rx] Glucosamine Sulfate Dipot Chlr [Glucosamine] 2,000 mg PO BID 06/29/18 [History] Lisinopril [Zestril] 10 mg PO DAILY 06/29/18 [History] [place]-3/Dha/Epa/Fish Oil [Fish Oil 1,000 mg Softgel] 1,000 mg PO BID 06/29/18 [History] Simvastatin [Zocor] 80 mg PO DAILY 06/29/18 [History] Vitamin E 800 unit PO DAILY 06/29/18 [History] Dexamethasone [Decadron] 4 mg PO AD #45 tab 07/06/18 [Rx] Magic Mouthwash [Magic Mouthwash BLM] 10 ml PO QID PRN #240 ml 07/28/18 [Rx] Lidocaine/Prilocaine [Emla] 1 appl TP AD PRN 08/06/18 [History] Zolpidem [Ambien] 10 mg PO HS PRN 08/06/18 [History] Allergy/AdvReac Type Severity Reaction Status Date / Time No Known Allergies Allergy Verified 07/10/18 10:42 All Systems: The remainder of the systems were reviewed and are negative Physical Examination Vital Signs: Vital Signs, Last 4 Hours Temp Pulse Resp BP Pulse Ox 08/11/18 15:47 30 89 08/11/18 15:39 98.0 F 103 30 132/72 89 08/11/18 12:09 98.2 F 104 26 124/79 92 General appearance: no acute distress Effort: mildly labored Auscultation: bilateral: wheezes (Minimal scattered wheezes) Cardiovascular: regular rate and rhythm Gastrointestinal: normoactive bowel sounds Extremities: no cyanosis normal mental status, non-focal exam Results - Laboratory Findings CBC and BMP: 08/11/18 07:58 08/11/18 07:58 ABG ABG pH 7.50 pH Units (7.32-7.45) H 08/10/18 10:50 ABG pCO2 31 mmHg (35-45) L 08/10/18 10:50 ABG pO2 95 mmHg (85-104) 08/10/18 10:50 ABG O2 Saturation 98 % (95-98) 08/10/18 10:50 PT/INR, D-dimer PT 14.0 Seconds (9.4-12.1) H 08/06/18 10:20 Abnormal lab findings: Abnormal lab results WBC 16.0 K/mcL (4.3-11.1) H 08/11/18 07:58 RBC 2.88 M/mcL (4.19-5.50) L 08/11/18 07:58 Hgb 8.0 g/dL (12.9-16.9) L 08/11/18 07:58 Hct 25.5 % (37.5-50.1) L 08/11/18 07:58 MCH 27.8 pg (28.0-33.3) L 08/11/18 07:58 MCHC 31.4 g/dL (31.6-35.5) L 08/11/18 07:58 RDW 18.2 % (11.5-14.5) H 08/11/18 07:58 Immature Gran % 4.9 % (0-4) H 08/11/18 07:58 2.0 % (0) H 08/10/18 06:01 14.0 K/mcL (1.6-8.9) H 08/11/18 07:58 0.5 K/mcL (0.6-4.6) L 08/07/18 05:21 Nucleated RBCs/100 WBC 0.4 /100 WBC (0) H 08/11/18 07:58 1+ (Not Present) A 08/10/18 06:01 Present (Not Present) A 08/10/18 06:01 1+ (Not Present) A 08/10/18 06:01 PT 14.0 Seconds (9.4-12.1) H 08/06/18 10:20 ABG pH 7.50 pH Units (7.32-7.45) H 08/10/18 10:50 ABG pCO2 31 mmHg (35-45) L 08/10/18 10:50 ABG pO2 43 mmHg (85-104) L* 08/10/18 04:22 ABG O2 Saturation 83 % (95-98) L 08/10/18 04:22 Sodium 133 mEq/L (136-145) L 08/07/18 05:21 Chloride 97 mEq/L (98-107) L 08/06/18 10:20 Carbon Dioxide 22 mEq/L (23-29) L 08/09/18 03:36 BUN 28 mg/dL (8-23) H 08/11/18 07:58 0.67 mg/dL (0.70-1.30) L 08/11/18 07:58 42 (6-26) H 08/11/18 07:58 Glucose 129 mg/dL (70-105) H 08/11/18 07:58 POC Glucose 220 mg/dL (70-99) H 08/11/18 12:11 303 (280-300) H 08/09/18 03:36 Lactic Acid 4.2 mmol/L (0.5-2.2) H* 08/07/18 09:10 Calcium 8.4 mg/dL (8.6-10.3) L 08/11/18 07:58 B-Natriuretic Peptide 158 pg/mL (Less than 100) H 08/06/18 10:20 5.9 g/dL (6.4-8.9) L 08/06/18 10:20 2.8 g/dL (3.5-5.7) L 08/06/18 10:20 0.9 (1.1-2.2) L 08/06/18 10:20 Ur Specific [place] > 1.030 (1.010-1.025) H 08/06/18 14:35 Gastric Occult Blood Positive (Negative) A 08/08/18 18:30 Vancomycin Trough 13 mcg/mL (5-10) H 08/08/18 00:08 - Microbiology Findings Microbiology Findings: Microbiology, Last 48 Hours 08/06/18 11:23 Blood Culture - Final Peripheral Venipuncture No growth. Final report. 08/06/18 11:15 Blood Culture - Final Peripheral Venipuncture No growth. Final report. - Clinical Findings Intake & Output: Intake & Output 08/10/18 08/11/18 08/11/18 23:59 07:59 15:59 Intake Total 300 / 300 60 / 420 360 / 420 Output Total 1000 / 1000 200 / 200 Balance -700 / -700 -140 / 220 360 / 220 Weight 82.9 kg Consult Discharge Plan - Plan Referrals: Rosaline Foote, STITCHER AROUND [Primary Care Provider] -
--- NOTE | 2018-08-11 16:13 | Palliative - Consult Note ---
Date of Encounter: 08/11/18 Time of Encounter: 15:00 - Assessment and Plan (1) Dyspnea Current Visit: Yes Status: Acute Assessment and plan: Patient currently on steroids, bronchodilators. Oxygen support on HFNC 40 l/min and BiPAP at night. Qualifiers: Dyspnea type: acute respiratory distress Qualified Code(s): R06.03 - Acute respiratory distress (2) Goals of care, counseling/discussion Current Visit: Yes Status: Acute Assessment and plan: 45 minutes meeting with patient and Jumana. Discussed current medical condition, trajectory of illness, treatment options and overall prognosis. Patient's most important goal at this point is to return home. However, he wants first to have a chance at all possible treatment to be more stable. He would like to hears from oncology and pulmonary what can be done to improve his breathing. He will attempt all possible options. If not good options were offered, then patient will be agreeable to return home with hospice. Explained hospice philosophy and plan of care. Patient made aware that on his current status, home will be possible only on BiPAP, with the acceptance that once ready, patient will remove the Bipap and accept natural . Patient and demonstrate understanding. Plan: patient to decide after discussion with oncology and Pulmonary. Advanced care planning was discussed, explained different levels of code status, patient at this time wants to be DNRCCA and DNI. He also designated Jumana and son-in-law as MPOA. Forms were filled and placed on file, copies given to patient. Total 20 minutes of ACP time. Palliative care will continue to follow. (3) Palliative care encounter Current Visit: Yes Status: Acute (4) Acute respiratory failure with hypoxia Current Visit: Yes Status: Acute Assessment and plan: Patient is on HFNC, desaturating with minimal exertion. Bipap at night, but no improvement so far. Pulmonary consult (5) Squamous cell lung cancer Current Visit: Yes Status: Chronic Assessment and plan: Patient was scheduled for his first chemotherapy on the day of admission. Oncology consulte today. Patient open to possible options. Qualifiers: Laterality: left Qualified Code(s): C34.92 - Malignant neoplasm of unspecified part of left bronchus or lung Palliative-CN HPI - Data of Consult Patient: new to practice Consult date: 08/11/18 Requesting Physician: Darius Castillo MD Primary Care Provider: Rosaline Foote CNP - Consult Narrative Palliative Care/Comfort Measures: Palliative care Reason for consult: goals of care History of present illness: Mr. 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 Patient was diagnosed with lung ca one year ago, and at the time did not want any treatment. Last month he developed R sided weakness, MRI revealed brain mets. Cyberknife was performed. Pt was scheduled on 08/06 for first chemo, he arrived in respiratory distress and was sent to the ED for admission. Despite aggressive treatment of his possible pneumonia and COPD exacerbation he has not improved and continues on high flow O2 Krysta and Bipap at night. Palliative care consult for Goals of care and hospice evaluation. Patient is AAOx3, on Krysta, tachypneic, using accessory muscles. He denies any pain, nausea, vomiting. CC: Darius Castillo MD - Time Spent with Patient Time: Total time spent is greater than 50% in coordination of care (as documented) at patient's floor/unit and/or counseling patient: Time with patient: 75 minutes Past Med Surg Social Fam HX - Past Medical History Medical history: cancer, diabetes, hypertension Additional medical history: brain tumor, right side paralysis, lung cancer, brain cancer, and lymphnode; Psychiatric history: no psych history - Past Surgical History Surgical History: coronary bypass (CABG) Additional surgical history: triple bypass, cardiac stents, back surgery - Social History Smoking Status: Former smoker Smokeless Tobacco Status: No Alcohol use: occasionally Drug use: none - Family History Father Living Status: Age at : 72 Cause of : heart Hx Family Cardiac Disorders: Yes Hx Family Respiratory Disorders: Yes Hx Family Cancer: No Hx Family GI Disorders: No Hx Family Genitourinary Disorders: No Hx Family Endocrine Disorder: No Hx Family Musculoskeletal Disorders: No Hx Family Neuromuscular Disorders: No Hx Family Neurologic Disorders: No Hx Family HEENT Disorders: No Hx Family Autoimmune Disorders: No Hx Family Reproductive Disorders: No Hx Family Psychosocial Disorders: No Hx Family Medical Disorders: No Mother Living Status: Age at : 97 Cause of : old age Hx Family Cardiac Disorders: No Hx Family Respiratory Disorders: No Hx Family Cancer: Yes Hx Family GI Disorders: No Hx Family Genitourinary Disorders: No Hx Family Endocrine Disorder: No Hx Family Musculoskeletal Disorders: No Hx Family Neuromuscular Disorders: No Hx Family Neurologic Disorders: No Hx Family HEENT Disorders: No Hx Family Autoimmune Disorders: No Hx Family Reproductive Disorders: No Hx Family Psychosocial Disorders: No Hx Family Medical Disorders: No Medications and Allergies Aspirin 325 mg PO DAILY 06/29/18 [History] BuPROPion SR (12 HR) [Wellbutrin SR] 100 mg PO DAILY 06/29/18 [History] Docusate [Colace] 100 mg PO BID PRN #60 capsule 06/29/18 [Rx] Glucosamine Sulfate Dipot Chlr [Glucosamine] 2,000 mg PO BID 06/29/18 [History] Lisinopril [Zestril] 10 mg PO DAILY 06/29/18 [History] [place]-3/Dha/Epa/Fish Oil [Fish Oil 1,000 mg Softgel] 1,000 mg PO BID 06/29/18 [History] Simvastatin [Zocor] 80 mg PO DAILY 06/29/18 [History] Vitamin E 800 unit PO DAILY 06/29/18 [History] Dexamethasone [Decadron] 4 mg PO AD #45 tab 07/06/18 [Rx] Magic Mouthwash [Magic Mouthwash BLM] 10 ml PO QID PRN #240 ml 07/28/18 [Rx] Lidocaine/Prilocaine [Emla] 1 appl TP AD PRN 08/06/18 [History] Zolpidem [Ambien] 10 mg PO HS PRN 08/06/18 [History] Allergy/AdvReac Type Severity Reaction Status Date / Time No Known Allergies Allergy Verified 07/10/18 10:42 - Constitutional Constitutional ROS PAL: decreased appetite - EENT Eyes: no change in vision Ears, nose, mouth, throat: no change in voice - Cardiovascular Cardiovascular ROS: chest pain, no leg edema - Respiratory Respiratory: dyspnea, dyspnea on exertion - Gastrointestinal Gastrointestinal: no abdominal pain, no constipation - Genitourinary Genitourinary ROS male: no dysuria - Musculoskeletal Musculoskeletal ROS IM: no back pain - Neurological Neurological ROS: no abnormal movements, no focal weakness Palliative Care-Exam - Constitutional Vitals: Temp Pulse Resp BP Pulse Ox 98.0 F 103 30 132/72 89 08/11/18 15:39 08/11/18 15:39 08/11/18 15:39 08/11/18 15:39 08/11/18 15:39 Exam: General: Patient is alert, moderate distress, oriented x 3 ENT: Mucous membranes moist; Krysta NC in place Respiratory: Coarse breath sounds bilaterally.. Cardiovascular: Regular rate and rhythm. s1 and s2 normal No clicks, rubs, gallops, or murmurs. No pedal edema Abdomen: Abdomen is soft, nontender. Bowel sounds are present Musculoskeletal: Spontaneously moving all extremities Skin: warm, dry, intact. Neuro: Alert oriented x 3 normal cranial nerves, no focal deficits Internal Medicine - CN: Reslt - Labs CBC & Chem 7: 08/11/18 07:58 08/11/18 07:58 Labs: Short CBC 08/10/18 08/11/18 Range/Units 16:39 07:58 WBC 16.0 H (4.3-11.1) K/mcL Hgb 7.7 L 8.0 L (12.9-16.9) g/dL Hct 24.4 L 25.5 L (37.5-50.1) % Plt Count 310 (140-400) K/mcL Neutrophils # 14.0 H (1.6-8.9) K/mcL BMP 08/11/18 07:58 Sodium 139 Potassium 4.1 Chloride 107 Carbon Dioxide 26 BUN 28 H Creatinine 0.67 L Glucose 129 H Calcium 8.4 L - ABG Interpretation ABG results: ABG ABG pH 7.50 pH Units (7.32-7.45) H 08/10/18 10:50 ABG pCO2 31 mmHg (35-45) L 08/10/18 10:50 ABG pO2 95 mmHg (85-104) 08/10/18 10:50 ABG O2 Saturation 98 % (95-98) 08/10/18 10:50 PT/INR, D-dimer PT 14.0 Seconds (9.4-12.1) H 08/06/18 10:20 Consult Discharge Plan - Plan Referrals: Rosaline Foote CNP [Primary Care Provider] - Palliative Quality Palliative Quality: Screen for Code Status: Yes, Screen for Goals of Care: Yes, Screen for Pain: Yes, If Pain Regimen Started, Initiate Bowel Regimen: NA, Screen for Nausea/Vomitting: Yes Code Status: 08/06/18 14:04 Resuscitation Status: Active [RES] Routine Comment: Resuscitation Status: Full Code Palliative Scale - Palliative Performance Scale How ambulatory is this patient?: Mainly in bed What is patient's level of activity and evidence of disease?: Unable to do most activity, Extensive disease How much self-care assistance does patient require?: Mainly assistance How much oral intake does the patient have?: Normal or reduced What is this patient's level of consciousness?: Full Palliative Performance Score: 40 %
[2018-08-12] MEDS: Levalbuterol Neb 0.63 MG/3 ML IH SCH ×4 (03:36→21:53)
[2018-08-12 04:26] LABS: Basophils % 0.1 %; Eosinophils % 0.1 %; Hematocrit 24.5 % (37.5-50.1); Hemoglobin 7.8 g/dL (12.9-16.9); Immature Granulocytes % 5.6 % (0-4); Lymphocytes # 0.9 K/mcL (0.6-4.6); Lymphocytes % 5.9 %; Mean Corpuscular HGB Conc 31.8 g/dL (31.6-35.5); Mean Corpuscular Volume 87.8 fL (83.0-100.0); Mean Platelet Volume 10.5 fL (9.4-12.4); Monocytes # 0.5 K/mcL (0.0-1.3); Monocytes % 3.7 %; Neutrophils # 12.3 K/mcL (1.6-8.9); Nucleated Red Blood Cells 0.5 /100 WBC (0); Platelet Count 305 K/mcL (140-400); Red Blood Count 2.79 M/mcL (4.19-5.50); Red Cell Distribution Width 17.9 % (11.5-14.5); Segmented Neutrophils % 84.6 %
[2018-08-12 04:36] LABS: BUN/Creatinine Ratio 39 (6-26); Blood Urea Nitrogen 29 mg/dL (8-23); Carbon Dioxide 27 mEq/L (23-29); Chloride 104 mEq/L (98-107); Glucose 126 mg/dL (70-105); Osmolality,Calculated 295 (280-300); Potassium 4.1 mEq/L (3.5-5.1); Sodium 139 mEq/L (136-145); eGFR For Non-African Americans > 60 (> 60)
[2018-08-12] MEDS: Pantoprazole 40 MG VIAL IVP SCH ×2 (04:58→18:08)
[2018-08-12] MEDS: MethylPREDNISolone 40 MG/ML VIAL IVP SCH ×2 (05:01→18:07)
[2018-08-12 05:03] LABS: Folate 7.8 ng/mL (3.0-16.0)
[2018-08-12] MEDS: *HR* Heparin 5,000 UNIT/ML VIAL SQ SCH ×3 (05:03→20:42)
[2018-08-12 05:05] LABS: Platelet Estimate Normal (Normal)
[2018-08-12] MEDS: Insulin LISPRO 300 UNITS/3 ML VIAL SQ SCH ×4 (09:49→20:42)
[2018-08-12] MEDS: Insulin DETEMIR 100 UNIT/ML X5UNITS SQ SCH (09:50)
[2018-08-12] MEDS: Doxycycline 100 MG CAPSULE PO SCH ×2 (09:50→20:41)
[2018-08-12] MEDS: Aspirin 325 MG TABLET PO SCH (09:50)
[2018-08-12 10:07] LABS: Bilirubin,Direct 0.1 mg/dL (0.0-0.2); Bilirubin,Indirect 0.3 mg/dL (0.0-1.2); Bilirubin,Total 0.4 mg/dL (0.3-1.0)
[2018-08-12] MEDS: Budesonide/Formoterol 160/4.5 1 PUFF INH IH SCH ×2 (11:18→21:53)
--- NOTE | 2018-08-12 12:15 | Pulmonology Progress Note ---
Date of Encounter: 08/12/18 Time of Encounter: 09:00 Assessment and Plan (1) Acute respiratory failure with hypoxia Current Visit: Yes Status: Acute Patient acute respiratory failure with hypoxia complicated by worsening metastatic adenocarcinoma, pneumonia worsening hydrostatic pulmonary edema, COPD exacerbation: We will reverse will factors that reducing inflammatory response COPD exacerbation with steroids and is a hydrostatic pulmonary edema with diuresis if patient does not respond to that agree with the primary team and palliative care team plan for changing to hospice patient really wants to go home after Friday. Try aggressive diuresis to Friday according to patient's goals of care. Pulmonary will sign off (2) COPD with acute exacerbation Current Visit: Yes Status: Acute To continue with bronchodilators and steroids (3) HCAP (healthcare-associated pneumonia) Current Visit: Yes Status: Acute To continue with broad-spectrum antibiotics (4) Lung cancer metastatic to brain Current Visit: Yes Status: Acute Patient has stage IV lung cancer getting worse. Palliative radiation or chemotherapy is not an option very poor prognosis agree with the plan of hospice Subjective Principal diagnosis: Patient worsening with acute respiratory failure Interval history: Patient still on BiPAP had some break in between the situation is feeling a lot better still looks like he is in respiratory distress denies any pain. Objective PUL Vital signs: Last Vital Signs Temp 97.4 F L 08/12/18 07:23 Pulse 84 08/12/18 07:23 Resp 28 08/12/18 11:19 BP 120/7 08/12/18 07:23 Pulse Ox 88 08/12/18 11:19 Effort: very labored Auscultation: bilateral: diminished breath sounds (Patient has diminished breath sounds), rales (Minimal scattered rales.) Cardiovascular: regular rate and rhythm Gastrointestinal: normoactive bowel sounds Extremities: no edema normal mental status, non-focal exam Results - Laboratory Findings CBC and BMP: 08/12/18 03:58 08/12/18 03:58 ABG ABG pH 7.50 pH Units (7.32-7.45) H 08/10/18 10:50 ABG pCO2 31 mmHg (35-45) L 08/10/18 10:50 ABG pO2 95 mmHg (85-104) 08/10/18 10:50 ABG O2 Saturation 98 % (95-98) 08/10/18 10:50 PT/INR, D-dimer PT 14.0 Seconds (9.4-12.1) H 08/06/18 10:20 Abnormal lab findings: Abnormal lab results WBC 14.5 K/mcL (4.3-11.1) H 08/12/18 03:58 RBC 2.79 M/mcL (4.19-5.50) L 08/12/18 03:58 Hgb 7.8 g/dL (12.9-16.9) L 08/12/18 03:58 Hct 24.5 % (37.5-50.1) L 08/12/18 03:58 MCH 27.8 pg (28.0-33.3) L 08/11/18 07:58 MCHC 31.4 g/dL (31.6-35.5) L 08/11/18 07:58 RDW 17.9 % (11.5-14.5) H 08/12/18 03:58 Immature Gran % 5.6 % (0-4) H 08/12/18 03:58 2.0 % (0) H 08/10/18 06:01 12.3 K/mcL (1.6-8.9) H 08/12/18 03:58 0.5 K/mcL (0.6-4.6) L 08/07/18 05:21 Nucleated RBCs/100 WBC 0.5 /100 WBC (0) H 08/12/18 03:58 1+ (Not Present) A 08/10/18 06:01 Present (Not Present) A 08/10/18 06:01 1+ (Not Present) A 08/10/18 06:01 PT 14.0 Seconds (9.4-12.1) H 08/06/18 10:20 ABG pH 7.50 pH Units (7.32-7.45) H 08/10/18 10:50 ABG pCO2 31 mmHg (35-45) L 08/10/18 10:50 ABG pO2 43 mmHg (85-104) L* 08/10/18 04:22 ABG O2 Saturation 83 % (95-98) L 08/10/18 04:22 Sodium 133 mEq/L (136-145) L 08/07/18 05:21 Chloride 97 mEq/L (98-107) L 08/06/18 10:20 Carbon Dioxide 22 mEq/L (23-29) L 08/09/18 03:36 BUN 29 mg/dL (8-23) H 08/12/18 03:58 0.67 mg/dL (0.70-1.30) L 08/11/18 07:58 39 (6-26) H 08/12/18 03:58 Glucose 126 mg/dL (70-105) H 08/12/18 03:58 POC Glucose 119 mg/dL (70-99) H 08/11/18 20:12 303 (280-300) H 08/09/18 03:36 Lactic Acid 4.2 mmol/L (0.5-2.2) H* 08/07/18 09:10 Calcium 8.0 mg/dL (8.6-10.3) L 08/12/18 03:58 Iron 36 mcg/dL (65-175) L 08/12/18 03:58 % Saturation 16 % (20-55) L 08/12/18 03:58 157 mg/dL (203-362) L 08/12/18 03:58 435 ng/mL (20-250) H 08/12/18 03:58 524 Units/L (140-271) H 08/12/18 03:58 B-Natriuretic Peptide 195 pg/mL (Less than 100) H 08/11/18 20:46 5.9 g/dL (6.4-8.9) L 08/06/18 10:20 2.8 g/dL (3.5-5.7) L 08/06/18 10:20 0.9 (1.1-2.2) L 08/06/18 10:20 Vitamin B12 1151 pg/mL (250-1100) H 08/12/18 03:58 Ur Specific [place] > 1.030 (1.010-1.025) H 08/06/18 14:35 Gastric Occult Blood Positive (Negative) A 08/08/18 18:30 Vancomycin Trough 13 mcg/mL (5-10) H 08/08/18 00:08 - Microbiology Findings Microbiology Findings: Microbiology, Last 48 Hours 08/06/18 11:23 Blood Culture - Final Peripheral Venipuncture No growth. Final report. 08/06/18 11:15 Blood Culture - Final Peripheral Venipuncture No growth. Final report. - Clinical Findings Intake & Output: Intake & Output 08/11/18 08/12/18 08/12/18 23:59 07:59 15:59 Intake Total 240 / 660 100 / 220 120 / 220 Balance 240 / 460 100 / 220 120 / 220 Weight 81.7 kg Consult Discharge Plan - Plan Referrals: Rosaline Foote, [employer] [Primary Care Provider] -
--- NOTE | 2018-08-12 13:19 | Oncology Inp Progress Note ---
<FrankKamroni - Last Filed: 08/12/18 17:19> Date of Encounter: 08/12/18 Oncology: Obj Data - Labs CBC & Chem 7: 08/12/18 03:58 08/12/18 03:58 Consult Discharge Plan - Plan Referrals: Rosaline Foote CNP [Primary Care Provider] - Inpatient Charges Provider: Dr. Lizett Marie Follow up - Inpatient: [id number] - Attending Attestation I examined this patient and my medical decision-making was reviewed with the Advanced Practice Nurse. I agree with the documented findings, disposition and treatment plan as described except to the extent set forth below. -Patient remains on BIPAP/ Krysta -He continues to have significant SOB -Palliative care c/s -Patient would like to wait until 08/14/18 before deciding on hospice -Will administer Venofer 300 mg IV for iron deficiency <Lauryn Beckman - Last Filed: 08/12/18 17:34> Date of Encounter: 08/12/18 Time of Encounter: 12:30 (1) Squamous cell lung cancer Current Visit: Yes Status: Chronic Assessment and plan: AJCC stage IV squamous cell carcinoma of the left lung, with metastatic nodules, mediastinal lymphadenopathy, possible bony metastatic disease and treated brain metastases s/p CyberKnife to frontal lesion at [place] 07/10. He continues on prednisone every other day. PDL1<1%, he was planed to start outpatient chemotherapy on 08/06/2018, however, he presented hypotensive and hypoxic, he was transferred to ED. CTA of the chest 08/06/2018 revealed redemonstration of a left upper lung cancer extending along the left anterior, medial and lateral pleural surface as well as into the left hilar area with encasement of vessels and bronchi, esophagitis, severe emphysema, increase in WILIAM nodule, nodularity along the left pleural space. Despite aggressive treatment of his possible pneumonia and COPD exacerbation he has not improved and continues on high flow O2 Krysta and Bipap at night. Pulmonology consulted for any further supportive recommendations-consult reviewed-overall, recommend continuation of current supportive care, steroids, O2 supplementation, diuresis. Prognosis overall is poor Plan: Discussed case with radiation oncologist Dr. Ratliff, recommends against radiotherapy to WILIAM lesion as this would not offer meaningful benefit in patients respiratory status Patient seems resistant to the idea of hospice, he wishes to continue with supportive measures and if his condition does not improve by Friday he may be agreeable to d/c home with hospice He is a DNCRRA-DNI If he continues to decline or does not improve despite these measures, we would recommend transition to hospice Patients at bedside appears realistic regarding overall goals and agrees with plan of care Prognosis is guarded We will continue to follow along for goals of care discussions, we appreciate the continued assistance of palliative care Qualifiers: Laterality: left Qualified Code(s): C34.92 - Malignant neoplasm of unspecified part of left bronchus or lung Oncology: Subj Interval history: Mr. Kahn is resting in bed. Eating lunch while Krysta in use, attempting to wean down however saturation is only about 79%, respiratory paged. When he took a break from eating sats quickly recovered to 85-87%. His is at bedside. He still required bipap overnight and states he did not tolerate well because he feels confined with the mask on his face. Denies pain. Respiratory function overall is about the same. He becomes somewhat anxious and agitated when discussing goals of care and feels as though he needs to wait until his Friday to see if his respiratory status improves. - Constitutional General appearance: cooperative, no acute distress, no febrile Exam: conversant - Head Head exam: Present: atraumatic - ENT ENT exam: Present: mucous membranes moist, normal oropharynx - Respiratory Respiratory exam: Present: decreased breath sounds, wheezes. Absent: respiratory distress - Cardiovascular Cardiovascular exam: Present: RRR - GI/Abdominal GI/Abdominal exam: Present: normal bowel sounds, soft. Absent: tenderness - Extremities Exam Extremities exam: Present: normal inspection. Absent: calf tenderness - Neurological Exam Neurological exam: Present: alert, oriented X3, no focal deficits, strengths equal and symetr throughout - Psychiatric Psychiatric exam: Present: normal affect, normal mood - Skin Skin exam: Present: dry, pallor, warm Oncology: Obj Data - Labs CBC & Chem 7: 08/12/18 03:58 08/12/18 03:58 Inpatient Charges Provider: Dr. Lizett Marie
--- NOTE | 2018-08-12 13:57 | Palliative Progress Note ---
Date of Encounter: 08/12/18 Time of Encounter: 13:30 - Assessment and plan (1) Dyspnea Current Visit: No Status: Acute Assessment and plan: Patient with metastatic lung cancer to brain. Patient using Krysta, Bipap and supplemental O2 to maintain breathing. Positions self for comfort with breathing. Vitals stable and is aware of overall prognosis. Desires to continue antibiotics, O2, and medications for breathing. Will need Bipap at DC. Qualifiers: Dyspnea type: acute respiratory distress Qualified Code(s): R06.03 - Acute respiratory distress (2) Goals of care, counseling/discussion Current Visit: Yes Status: Acute Assessment and plan: Jumana at bedside and patient just finished POC coversation with Gabrielle Beckman CNP with Oncology. Patient aware of overall poor prognosis but just isn't ready to transition to hospice care yet. Patient desires further medical management if possible. Patient is participating as much as possible in PT/OT. Will allow patient the time to accept prognosis and provided support to patient and during this challenging time. (3) Palliative care encounter Current Visit: Yes Status: Acute (4) Squamous cell lung cancer Current Visit: Yes Status: Chronic Qualifiers: Laterality: left Qualified Code(s): C34.92 - Malignant neoplasm of unsp ecified part of left bronchus or lung - Time Spent With Patient Total time spent is greater than 50% in coordination of care (as documented) at patient's floor/unit and/or counseling patient: less than 15 minutes - Subjective Interval history: Patient sitting up in the chair with Bipap on. Tolerating Bipap with sats at 97%. Patient A, Ox3. Able to have conversation. States Bipap on for small rest before PT/OT. Jumana at bedside. - Constitutional Vitals: Abnormal lab results WBC 14.5 K/mcL (4.3-11.1) H 08/12/18 03:58 RBC 2.79 M/mcL (4.19-5.50) L 08/12/18 03:58 Hgb 7.8 g/dL (12.9-16.9) L 08/12/18 03:58 Hct 24.5 % (37.5-50.1) L 08/12/18 03:58 MCH 27.8 pg (28.0-33.3) L 08/11/18 07:58 MCHC 31.4 g/dL (31.6-35.5) L 08/11/18 07:58 RDW 17.9 % (11.5-14.5) H 08/12/18 03:58 Immature Gran % 5.6 % (0-4) H 08/12/18 03:58 2.0 % (0) H 08/10/18 06:01 12.3 K/mcL (1.6-8.9) H 08/12/18 03:58 0.5 K/mcL (0.6-4.6) L 08/07/18 05:21 Nucleated RBCs/100 WBC 0.5 /100 WBC (0) H 08/12/18 03:58 1+ (Not Present) A 08/10/18 06:01 Present (Not Present) A 08/10/18 06:01 1+ (Not Present) A 08/10/18 06:01 PT 14.0 Seconds (9.4-12.1) H 08/06/18 10:20 ABG pH 7.50 pH Units (7.32-7.45) H 08/10/18 10:50 ABG pCO2 31 mmHg (35-45) L 08/10/18 10:50 ABG pO2 43 mmHg (85-104) L* 08/10/18 04:22 ABG O2 Saturation 83 % (95-98) L 08/10/18 04:22 Sodium 133 mEq/L (136-145) L 08/07/18 05:21 Chloride 97 mEq/L (98-107) L 08/06/18 10:20 Carbon Dioxide 22 mEq/L (23-29) L 08/09/18 03:36 BUN 29 mg/dL (8-23) H 08/12/18 03:58 0.67 mg/dL (0.70-1.30) L 08/11/18 07:58 39 (6-26) H 08/12/18 03:58 Glucose 126 mg/dL (70-105) H 08/12/18 03:58 POC Glucose 119 mg/dL (70-99) H 08/11/18 20:12 303 (280-300) H 08/09/18 03:36 Lactic Acid 4.2 mmol/L (0.5-2.2) H* 08/07/18 09:10 Calcium 8.0 mg/dL (8.6-10.3) L 08/12/18 03:58 Iron 36 mcg/dL (65-175) L 08/12/18 03:58 % Saturation 16 % (20-55) L 08/12/18 03:58 157 mg/dL (203-362) L 08/12/18 03:58 435 ng/mL (20-250) H 08/12/18 03:58 524 Units/L (140-271) H 08/12/18 03:58 B-Natriuretic Peptide 195 pg/mL (Less than 100) H 08/11/18 20:46 5.9 g/dL (6.4-8.9) L 08/06/18 10:20 2.8 g/dL (3.5-5.7) L 08/06/18 10:20 0.9 (1.1-2.2) L 08/06/18 10:20 Vitamin B12 1151 pg/mL (250-1100) H 08/12/18 03:58 Ur Specific [place] > 1.030 (1.010-1.025) H 08/06/18 14:35 Gastric Occult Blood Positive (Negative) A 08/08/18 18:30 Vancomycin Trough 13 mcg/mL (5-10) H 08/08/18 00:08 - Head Head exam: Present: atraumatic, normal inspection, normocephalic - Eye Eye exam: Present: PERRL Pupils: Present: PERRL - ENT ENT exam: Present: mucous membranes moist - Neck Neck exam: Present: full ROM - Respiratory Respiratory exam: Present: decreased breath sounds, rhonchi - Expanded Respiratory Exam Location: decreased breath sounds: Left, Right, Lower, rhonchi: Left, Upper - Cardiovascular Cardiovascular exam: Present: RRR, +S1, +S2, tachycardia - GI/Abdominal GI/Abdominal exam: Present: normal bowel sounds, soft - Extremities Exam Extremities exam: Present: normal inspection - Neurological Exam Neurological exam: Present: alert, oriented X3 Palliative Quality Palliative Quality: Screen for Code Status: Yes, Screen for Goals of Care: Yes, Screen for Pain: Yes, If Pain Regimen Started, Initiate Bowel Regimen: NA, Screen for Nausea/Vomitting: Yes Code Status: 08/06/18 14:04 Resuscitation Status: Active [RES] Routine Comment: Resuscitation Status: Full Code 08/11/18 15:47 Resuscitation Status: Active [RES] Routine Comment: Resuscitation Status: [id number] - Labs CBC & Chem 7: 08/12/18 03:58 08/12/18 03:58 Labs: Laboratory Results - last 24 hr 08/11/18 08/11/18 08/11/18 15:41 17:39 20:12 WBC RBC Hgb Hct MCV MCH MCHC RDW Plt Count MPV Immature Gran % Seg Neutrophils % Lymphocytes % Monocytes % Eosinophils % Basophils % Neutrophils # Lymphocytes # Monocytes # Eosinophils # Basophils # Nucleated RBCs/100 WBC Platelet Estimate Sodium Potassium Chloride Carbon Dioxide BUN Creatinine Est GFR ( Amer) Est GFR (Non-Af Amer) BUN/Creatinine Ratio Glucose POC Glucose 165 H 119 H Calculated Osmolality Calcium Iron % Saturation Transferrin Ferritin Total Bilirubin Direct Bilirubin Indirect Bilirubin Lactate Dehydrogenase B-Natriuretic Peptide Vitamin B12 Folate Procalcitonin 0.08 [place], Poly Interpret 08/11/18 08/12/18 08/12/18 20:46 03:58 03:58 WBC 14.5 H RBC 2.79 L Hgb 7.8 L Hct 24.5 L MCV 87.8 MCH 28.0 MCHC 31.8 RDW 17.9 H Plt Count 305 MPV 10.5 Immature Gran % 5.6 H Seg Neutrophils % 84.6 Lymphocytes % 5.9 Monocytes % 3.7 Eosinophils % 0.1 Basophils % 0.1 Neutrophils # 12.3 H Lymphocytes # 0.9 Monocytes # 0.5 Eosinophils # 0.0 Basophils # 0.0 Nucleated RBCs/100 WBC 0.5 H Platelet Estimate Normal Sodium 139 Potassium 4.1 Chloride 104 Carbon Dioxide 27 BUN 29 H Creatinine 0.74 Est GFR ( Amer) > 60 Est GFR (Non-Af Amer) > 60 BUN/Creatinine Ratio 39 H Glucose 126 H POC Glucose Calculated Osmolality 295 Calcium 8.0 L Iron % Saturation Transferrin Ferritin Total Bilirubin Direct Bilirubin Indirect Bilirubin Lactate Dehydrogenase B-Natriuretic Peptide 195 H Vitamin B12 Folate Procalcitonin [place], Poly Interpret 08/12/18 08/12/18 08/12/18 03:58 03:58 03:58 WBC RBC Hgb Hct MCV MCH MCHC RDW Plt Count MPV Immature Gran % Seg Neutrophils % Lymphocytes % Monocytes % Eosinophils % Basophils % Neutrophils # Lymphocytes # Monocytes # Eosinophils # Basophils # Nucleated RBCs/100 WBC Platelet Estimate Sodium Potassium Chloride Carbon Dioxide BUN Creatinine Est GFR ( Amer) Est GFR (Non-Af Amer) BUN/Creatinine Ratio Glucose POC Glucose Calculated Osmolality Calcium Iron 36 L % Saturation 16 L Transferrin 157 L Ferritin 435 H Total Bilirubin 0.4 Direct Bilirubin 0.1 Indirect Bilirubin 0.3 Lactate Dehydrogenase 524 H B-Natriuretic Peptide Vitamin B12 1151 H Folate 7.8 Procalcitonin [place], Poly Interpret NEG - Impressions Impressions Echocardiogram 08/11/18 13:08 Impressions: LVEF 65%. Mild left ventricular diastolic dysfunction. Right ventricle was not well visualized. Grossly, systolic function is normal. Echodensity in the RA appears linear and may represent artifact vs. catheter. Mild mitral regurgitation. Mild tricuspid regurgitation. Moderate pulmonary hypertension. No evidence of PFO with agitated saline contrast. Left Ventricular Wall Motion: Rest Echo Findings All wall segments showed normal motion. Findings: Study Quality * Technically adequate exam. ECG Findings * Probably sinus tachycardia. ECG lead demonstrates artifact. Left Ventricle * LVEF 65%. * Normal LV chamber size, wall thickness and function. * Mild left ventricular diastolic dysfunction. Right Ventricle * Right ventricle was not well visualized. Grossly, systolic function is normal. Left Atrium * Mildly dilated left atrium. Right Atrium * Mildly dilated right atrium. * Echodensity in the RA appears linear and may represent artifact vs. catheter. Aortic Valve * No aortic regurgitation. * Trileaflet aortic valve. * No aortic stenosis. Mitral Valve * No mitral stenosis. * Normal mitral valve structure. * Mild mitral regurgitation. Tricuspid Valve * Normal tricuspid valve structure. * Mild tricuspid regurgitation. Pulmonic Valve * Pulmonic valve is not well visualized. * No pulmonic stenosis. * No pulmonic regurgitation. Pulmonary Artery * Pulmonary artery not well visualized. Aorta * Normally sized aortic root. Pericardium * There is no pericardial effusion present. Interatrial Septum * No evidence of PFO with agitated saline contrast. IVC * The IVC is not well evaluated. - ABG Interpretation ABG results: ABG ABG pH 7.50 pH Units (7.32-7.45) H 08/10/18 10:50 ABG pCO2 31 mmHg (35-45) L 08/10/18 10:50 ABG pO2 95 mmHg (85-104) 08/10/18 10:50 ABG O2 Saturation 98 % (95-98) 08/10/18 10:50 PT/INR, D-dimer PT 14.0 Seconds (9.4-12.1) H 08/06/18 10:20 Palliative Scale - Palliative Performance Scale How ambulatory is this patient?: Mainly in bed What is patient's level of activity and evidence of disease?: Unable to do most activity, Extensive disease How much self-care assistance does patient require?: Mainly assistance How much oral intake does the patient have?: Normal or reduced What is this patient's level of consciousness?: Full Palliative Performance Score: 40 % Consult Discharge Plan - Plan Referrals: Rosaline Foote, JUICE WEIGHER [Primary Care Provider] -
[2018-08-12] MEDS ORDERED: Furosemide 40 MG/4 ML VIAL IVP ONE (14:55)
--- NOTE | 2018-08-12 18:52 | Internal Med Progress Note ---
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 Patient with not much improvement in O2 requirements still requiring high flow oxygenation Will observe for the next 24-48 hours to determine if patient will be held to tolerate chemotherapy versus home with hospice - Exam Vitals: Temp Pulse Resp BP Pulse Ox 97.4 F L 91 32 132/74 96 08/12/18 16:15 08/12/18 16:15 08/12/18 16:42 08/12/18 16:15 08/12/18 16:42 Exam: Gen.: Nonacute distress, alert and oriented 3 ENT: Mucosal membranes moist Respiratory: Lungs are clear to auscultation bilaterally without any wheezing rhonchi or rales Cardiovascular: Normal S1 and S2 regular rate rhythm no murmurs rubs or gallops Abdomen: Soft, nontender and nondistended with positive bowel sounds Extremities: No lower extremity edema Skin: Normal color - Assessment and Plan (1) Squamous cell lung cancer Current Visit: Yes Status: Chronic Assessment and Plan: Patient with poor prognosis per pulmonology due to requirements of continue high flow oxygenation Hematology oncology following with recommendations to observe for the next 24- 48 hours to determine if patient will be held to tolerate chemotherapy versus home with hospice (2) Severe sepsis Current Visit: Yes Status: Acute Assessment and Plan: Sepsis resolved. Blood cultures have been negative. Procalcitonin level was normal. Complete oral antibiotic course. (3) Anemia Current Visit: Yes Status: Chronic Assessment and Plan: Stable; continue to monitor (4) HCAP (healthcare-associated pneumonia) Current Visit: Yes Status: Acute Assessment and Plan: Will continue by mouth Augmentin (5) COPD with acute exacerbation Current Visit: Yes Status: Acute Assessment and Plan: Patient currently on steroids, bronchodilators. 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 Has not shown much improvement in aeration despite aggressive care. Discussed goals of care with family. Will observe for the next 24-48 hours to determine if patient will be held to tolerate chemotherapy versus home with hospice DVT Prophylaxis: Heparin subcutaneous - Time Spent with Patient Total time spent is greater than 50% in coordination of care (as documented) at patient's floor/unit and/or counseling patient: Internal Medicine: Result - Labs CBC & Chem 7: 08/12/18 03:58 08/12/18 03:58 Labs: Short CBC 08/12/18 Range/Units 03:58 WBC 14.5 H (4.3-11.1) K/mcL Hgb 7.8 L (12.9-16.9) g/dL Hct 24.5 L (37.5-50.1) % Plt Count 305 (140-400) K/mcL Neutrophils # 12.3 H (1.6-8.9) K/mcL BMP 08/12/18 03:58 Sodium 139 Potassium 4.1 Chloride 104 Carbon Dioxide 27 BUN 29 H Creatinine 0.74 Glucose 126 H Calcium 8.0 L Liver Function 08/12/18 Range/Units 03:58 Total Bilirubin 0.4 (0.3-1.0) mg/dL Direct Bilirubin 0.1 (0.0-0.2) mg/dL - ABG Interpretation ABG results: ABG ABG pH 7.50 pH Units (7.32-7.45) H 08/10/18 10:50 ABG pCO2 31 mmHg (35-45) L 08/10/18 10:50 ABG pO2 95 mmHg (85-104) 08/10/18 10:50 ABG O2 Saturation 98 % (95-98) 08/10/18 10:50 PT/INR, D-dimer PT 14.0 Seconds (9.4-12.1) H 08/06/18 10:20 - Impressions Impressions Echocardiogram 08/11/18 13:08 Impressions: LVEF 65%. Mild left ventricular diastolic dysfunction. Right ventricle was not well visualized. Grossly, systolic function is normal. Echodensity in the RA appears linear and may represent artifact vs. catheter. Mild mitral regurgitation. Mild tricuspid regurgitation. Moderate pulmonary hypertension. No evidence of PFO with agitated saline contrast. Left Ventricular Wall Motion: Rest Echo Findings All wall segments showed normal motion. Findings: Study Quality * Technically adequate exam. ECG Findings * Probably sinus tachycardia. ECG lead demonstrates artifact. Left Ventricle * LVEF 65%. * Normal LV chamber size, wall thickness and function. * Mild left ventricular diastolic dysfunction. Right Ventricle * Right ventricle was not well visualized. Grossly, systolic function is normal. Left Atrium * Mildly dilated left atrium. Right Atrium * Mildly dilated right atrium. * Echodensity in the RA appears linear and may represent artifact vs. catheter. Aortic Valve * No aortic regurgitation. * Trileaflet aortic valve. * No aortic stenosis. Mitral Valve * No mitral stenosis. * Normal mitral valve structure. * Mild mitral regurgitation. Tricuspid Valve * Normal tricuspid valve structure. * Mild tricuspid regurgitation. Pulmonic Valve * Pulmonic valve is not well visualized. * No pulmonic stenosis. * No pulmonic regurgitation. Pulmonary Artery * Pulmonary artery not well visualized. Aorta * Normally sized aortic root. Pericardium * There is no pericardial effusion present. Interatrial Septum * No evidence of PFO with agitated saline contrast. IVC * The IVC is not well evaluated. Consult Discharge Plan - Plan Referrals: Rosaline Foote, [employer] [Primary Care Provider] - (1) Squamous cell lung cancer Qualifiers: Laterality: left Qualified Code(s): C34.92 - Malignant neoplasm of unspecified part of left bronchus or lung (3) Anemia Qualifiers: Anemia type: unspecified type Qualified Code(s): D64.9 - Anemia, unspecified
[2018-08-13] MEDS: Levalbuterol Neb 0.63 MG/3 ML IH SCH ×4 (03:55→22:10)
[2018-08-13] MEDS: *HR* Heparin 5,000 UNIT/ML VIAL SQ SCH ×3 (05:46→22:05)
[2018-08-13] MEDS: MethylPREDNISolone 40 MG/ML VIAL IVP SCH ×2 (05:49→17:53)
[2018-08-13] MEDS: Pantoprazole 40 MG VIAL IVP SCH ×2 (05:49→17:53)
--- NOTE | 2018-08-13 08:41 | Internal Med Progress Note ---
Hospitalist Progress Note - Encounter Date of Encounter: 08/13/18 Time of Encounter: 11:00 - Subjective Interval History: Patient is a 77-year-old male with past medical history significant for 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 Patient still requiring high flow oxygenation has not been able to be weaned d own. Will try aggressive IV diuresis due to hydrostatic pulmonary edema per pulmonology recommendations for another 24 hours to see if respiratory status improves. - Exam Vitals: Temp Pulse Resp BP Pulse Ox 98.0 F 90 33 123/75 99 08/13/18 07:49 08/13/18 07:49 08/13/18 07:49 08/13/18 07:49 08/13/18 07:49 Exam: Gen.: Nonacute distress, alert and oriented 3 ENT: Mucosal membranes moist Respiratory: Lungs are clear to auscultation bilaterally without any wheezing rhonchi or rales Cardiovascular: Normal S1 and S2 regular rate rhythm no murmurs rubs or gallops Abdomen: Soft, nontender and nondistended with positive bowel sounds Extremities: No lower extremity edema Skin: Normal color - Assessment and Plan (1) Acute respiratory failure with hypoxia Current Visit: Yes Status: Acute Assessment and Plan: Patient still requiring high flow oxygenation has not been able to be weaned down. Pulmonology following and suspects multifactorial including prostatic pulmonary edema, COPD exacerbation, possible pneumonia, possible radiation pneumonitis, u nderlying lung cancer. Poor prognosis per pulmonology Recommendations for aggressive IV diuresis for hydrostatic pulmonary edema to see if respiratory status improves Discussed goals of care with family. Will observe for the next 24 hours to determine if patient will be able to romeo ate chemotherapy due to respiratory failure versus home with hospice (2) Squamous cell lung cancer Current Visit: Yes Status: Chronic Assessment and Plan: Patient with stage IV squamous cell carcinoma the left lung with metastatic nodules, mediastinal nephropathy, metastasis to the brain with possible bony metastasis. Patient was planned to start chemotherapy on 08/06/18 as an outpatient but was sent to the ER due to hypoxia and hypotension CT angiogram of the chest showed redemonstration of left upper lung cancer extending along the left anterior, medial and lateral pleural surfaces as well as into the left hilar area with encasement of vessels and bronchi. In addition CT also demonstrated extensive mediastinal and hilar lymphadenopathy Hematology oncology following with recommendations to observe for the next 24 hours to determine if patient will be able to tolerate chemotherapy due to acute hypoxic respiratory failure versus home with hospice (3) HCAP (healthcare-associated pneumonia) Current Visit: Yes Status: Acute Assessment and Plan: Chest x-ray showed bilateral airspace disease likely combination pneumonia, malignancy and atelectasis Patient's leukocytosis has improved and has been afebrile with oral antibiotic Will continue by mouth Augmentin and doxycycline (4) COPD with acute exacerbation Current Visit: Yes Status: Acute Assessment and Plan: Patient currently on steroids, bronchodilators. Continue to monitor (5) Severe sepsis Current Visit: Yes Status: Acute Assessment and Plan: Sepsis resolved. Blood cultures have been negative. Procalcitonin level was normal. Complete oral antibiotic course. (6) Anemia Current Visit: Yes Status: Chronic Assessment and Plan: Patient with acute blood loss anemia which is stable Patient's hemoglobin on 06/2018 was 13.3 and this morning is 7.8 Patient was found to have a positive gastric occult blood in stool GI was consulted with recommendations for EGD for evaluation family declined and preferred that evaluation/workup be done at a later time. DVT Prophylaxis: Heparin subcutaneous - Time Spent with Patient Total time spent is greater than 50% in coordination of care (as documented) at patient's floor/unit and/or counseling patient: Internal Medicine: Result - Labs CBC & Chem 7: 08/13/18 09:40 08/13/18 09:40 Labs: Liver Function 08/12/18 Range/Units 03:58 Total Bilirubin 0.4 (0.3-1.0) mg/dL Direct Bilirubin 0.1 (0.0-0.2) mg/dL - ABG Interpretation ABG results: ABG ABG pH 7.50 pH Units (7.32-7.45) H 08/10/18 10:50 ABG pCO2 31 mmHg (35-45) L 08/10/18 10:50 ABG pO2 95 mmHg (85-104) 08/10/18 10:50 ABG O2 Saturation 98 % (95-98) 08/10/18 10:50 PT/INR, D-dimer PT 14.0 Seconds (9.4-12.1) H 08/06/18 10:20 - Impressions Impressions Echocardiogram 08/11/18 13:08 Impressions: LVEF 65%. Mild left ventricular diastolic dysfunction. Right ventricle was not well visualized. Grossly, systolic function is normal. Echodensity in the RA appears linear and may represent artifact vs. catheter. Mild mitral regurgitation. Mild tricuspid regurgitation. Moderate pulmonary hypertension. No evidence of PFO with agitated saline contrast. Left Ventricular Wall Motion: Rest Echo Findings All wall segments showed normal motion. Findings: Study Quality * Technically adequate exam. ECG Findings * Probably sinus tachycardia. ECG lead demonstrates artifact. Left Ventricle * LVEF 65%. * Normal LV chamber size, wall thickness and function. * Mild left ventricular diastolic dysfunction. Right Ventricle * Right ventricle was not well visualized. Grossly, systolic function is normal. Left Atrium * Mildly dilated left atrium. Right Atrium * Mildly dilated right atrium. * Echodensity in the RA appears linear and may represent artifact vs. catheter. Aortic Valve * No aortic regurgitation. * Trileaflet aortic valve. * No aortic stenosis. Mitral Valve * No mitral stenosis. * Normal mitral valve structure. * Mild mitral regurgitation. Tricuspid Valve * Normal tricuspid valve structure. * Mild tricuspid regurgitation. Pulmonic Valve * Pulmonic valve is not well visualized. * No pulmonic stenosis. * No pulmonic regurgitation. Pulmonary Artery * Pulmonary artery not well visualized. Aorta * Normally sized aortic root. Pericardium * There is no pericardial effusion present. Interatrial Septum * No evidence of PFO with agitated saline contrast. IVC * The IVC is not well evaluated. Consult Discharge Plan - Plan Referrals: Rosaline Foote, [employer] [Primary Care Provider] - (2) Squamous cell lung cancer Qualifiers: Laterality: left Qualified Code(s): C34.92 - Malignant neoplasm of unspecified part of left bronchus or lung (6) Anemia Qualifiers: Anemia type: unspecified type Qualified Code(s): D64.9 - Anemia, unspecified
[2018-08-13] MEDS: Aspirin 325 MG TABLET PO SCH (09:33)
[2018-08-13] MEDS: Doxycycline 100 MG CAPSULE PO SCH ×2 (09:33→20:19)
[2018-08-13] MEDS: Insulin LISPRO 300 UNITS/3 ML VIAL SQ SCH ×4 (09:34→22:04)
[2018-08-13] MEDS: Insulin DETEMIR 100 UNIT/ML X5UNITS SQ SCH (09:34)
[2018-08-13] MEDS: Furosemide 80 MG in 0.9 % Sodium Chloride 50 ML IVPB SCH ×2 (09:51→17:53)
[2018-08-13 09:52] LABS: Hematocrit 27.5 % (37.5-50.1); Hemoglobin 8.5 g/dL (12.9-16.9); Mean Corpuscular HGB Conc 30.9 g/dL (31.6-35.5); Mean Corpuscular Hemoglobin 27.6 pg (28.0-33.3); Mean Corpuscular Volume 89.3 fL (83.0-100.0); Mean Platelet Volume 10.1 fL (9.4-12.4); Nucleated Red Blood Cells 0.4 /100 WBC (0); Platelet Count 318 K/mcL (140-400); Red Blood Count 3.08 M/mcL (4.19-5.50)
[2018-08-13 10:16] LABS: BUN/Creatinine Ratio 38 (6-26); Blood Urea Nitrogen 24 mg/dL (8-23); Calcium 8.1 mg/dL (8.6-10.3); Carbon Dioxide 27 mEq/L (23-29); Chloride 104 mEq/L (98-107); Glucose 140 mg/dL (70-105); Osmolality,Calculated 298 (280-300); Potassium 4.6 mEq/L (3.5-5.1); Sodium 141 mEq/L (136-145); eGFR For Non-African Americans > 60 (> 60)
[2018-08-13] MEDS: Budesonide/Formoterol 160/4.5 1 PUFF INH IH SCH ×2 (10:47→22:10)
[2018-08-13 11:40] LABS: Anisocytosis 1+ (Not Present); Lymphocytes # 0.4 K/mcL (0.6-4.6); Neutrophils # 16.8 K/mcL (1.6-8.9); Platelet Estimate Normal (Normal)
[2018-08-13 11:41] LABS: Polychromasia 2+ (Not Present)
--- NOTE | 2018-08-13 13:37 | Oncology Inp Progress Note ---
<Emmanuel Marie - Last Filed: 08/13/18 16:13> Date of Encounter: 08/13/18 Time of Encounter: 16:13 Oncology: Obj Data - Labs CBC & Chem 7: 08/13/18 09:40 08/13/18 09:40 Consult Discharge Plan - Plan Referrals: Rosaline Foote, SUPERVISOR REWORK [Primary Care Provider] - Inpatient Charges Follow up - Inpatient: [id number] - Attending Attestation I examined this patient and my medical decision-making was reviewed with the Advanced Practice Nurse. I agree with the documented findings, disposition and treatment plan as described except to the extent set forth below. 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 He continues on prednisone every other day. PDL1<1%, he was planed to start outpatient chemotherapy on 08/06/2018, however, he presented hypotensive and hypoxic, he was transferred to ED. CTA of the chest 08/06/2018 revealed redemonstration of a left upper lung cancer extending along the left anterior, medial and lateral pleural surface as well as into the left hilar area with encasement of vessels and bronchi, esophagitis, severe emphysema, increase in WILIAM nodule, nodularity along the left pleural space. Despite aggressive treatment of his possible pneumonia and COPD exacerbation he has not improved and continues on high flow O2 Angie and Bipap at night. Pulmonology consulted for any further supportive recommendations-consult reviewed-overall, recommend continuation of current supportive care, steroids, O2 supplementation, diuresis. Prognosis overall is poor Discussed case with radiation oncologist Dr. Ratliff, recommends against radiotherapy to WILIAM lesion as this would not offer meaningful benefit in patients respiratory status Plan: He is a DNCRRA-DNI Patient continues to require Angie/Bipap despite aggressive measures Pulmonology has recommended aggressive diuresis Patient and appear to be more comfortable with the idea of transition to hospice today and understand that patient is a poor treatment candidate moving forward due to his poor functional and respiratory status They would like to discuss set up of services with palliative care for d/c home with hospice, Dr. Sands made aware Qualifiers: Laterality: left Qualified Code(s): C34.92 - Malignant neoplasm of unspecified part of left bronchus or lung Oncology: Subj Interval history: Mr. Kahn is resting in bed, continues to utilize Angie during day and Bipap at night. He tolerates bipap poorly and does not like the face mask. He states he overall feels ok. Appetite is very good. He denies pain, nausea, vomiting, diarrhea or constipation. - Constitutional General appearance: cooperative, no acute distress, no febrile Exam: chronically ill appearing, Utilizing Angie - Head Head exam: Present: atraumatic - ENT ENT exam: Present: mucous membranes moist, normal oropharynx - Respiratory Respiratory exam: Present: decreased breath sounds, wheezes. Absent: respiratory distress - Cardiovascular Cardiovascular exam: Present: RRR - GI/Abdominal GI/Abdominal exam: Present: normal bowel sounds, soft. Absent: tenderness - Extremities Exam Extremities exam: Present: normal inspection. Absent: calf tenderness - Neurological Exam Neurological exam: Present: alert, oriented X3, no focal deficits, strengths equal and symetr throughout - Psychiatric Psychiatric exam: Present: normal affect, normal mood - Skin Skin exam: Present: dry, pallor, warm Oncology: Obj Data - Labs CBC & Chem 7: 08/13/18 09:40 08/13/18 09:40 Inpatient Charges Provider: Dr. Lizett Marie
--- NOTE | 2018-08-13 16:15 | Palliative Progress Note ---
Date of Encounter: 08/13/18 Time of Encounter: 15:00 - Assessment and plan (1) Dyspnea Current Visit: No Status: Acute Assessment and plan: Patient continues to be dependent on Bipap or HFNC 60 l/min. Per oncology not a candidate for any intervention. Per Pulmonary, on a trial of aggressive diuresis. Qualifiers: Qualified Code(s): R06.03 - Acute respiratory distress (2) Goals of care, counseling/discussion Current Visit: Yes Status: Acute Assessment and plan: 30 minutes meeting with patient and , along with [place] hospice nurse Celina. Discussed patient's respiratory failure and lack of improvement. Patient's most important goal is to return home, and he is very excited to be discharged t omorrow with Hospice. Discussed that the HFNC cannot be set up at home, and that pt will then become BiPAP dependent. Discussed what are reasonable expectations of him getting off BiPAP long enough to eat or drink, and that he will desaturate very fast on any other source of oxygen. Patient is aware that once he decide to get off BiPAP, he will probably in a few hours. Jumana encouraged to call their children in to say goodbye. Plan is to return home tomorrow on BIPAP, with [facility] per family choice. (3) Palliative care encounter Current Visit: Yes Status: Acute (4) Acute respiratory failure with hypoxia Current Visit: Yes Status: Acute (5) Squamous cell lung cancer Current Visit: Yes Status: Chronic Qualifiers: Qualified Code(s): C34.92 - Malignant neoplasm of unspecified part of left bronchus or lung - Time Spent With Patient Total time spent is greater than 50% in coordination of care (as documented) at patient's floor/unit and/or counseling patient: Greater than 35 minutes - Subjective Interval history: Patient was lying in bed, eyes closed, on HFNC, stated to be feeling "ok as long as I don't move". he denies pain. Jumana at the bedside. - Constitutional Vitals: Abnormal lab results WBC 17.7 K/mcL (4.3-11.1) H 08/13/18 09:40 RBC 3.08 M/mcL (4.19-5.50) L 08/13/18 09:40 Hgb 8.5 g/dL (12.9-16.9) L 08/13/18 09:40 Hct 27.5 % (37.5-50.1) L 08/13/18 09:40 MCH 27.6 pg (28.0-33.3) L 08/13/18 09:40 MCHC 30.9 g/dL (31.6-35.5) L 08/13/18 09:40 RDW 18.0 % (11.5-14.5) H 08/13/18 09:40 Immature Gran % 5.6 % (0-4) H 08/12/18 03:58 3.0 % (0) H 08/13/18 09:40 2.0 % (0) H 08/10/18 06:01 16.8 K/mcL (1.6-8.9) H 08/13/18 09:40 0.4 K/mcL (0.6-4.6) L 08/13/18 09:40 Nucleated RBCs/100 WBC 0.4 /100 WBC (0) H 08/13/18 09:40 2+ (Not Present) A 08/13/18 09:40 Present (Not Present) A 08/10/18 06:01 1+ (Not Present) A 08/13/18 09:40 PT 14.0 Seconds (9.4-12.1) H 08/06/18 10:20 ABG pH 7.50 pH Units (7.32-7.45) H 08/10/18 10:50 ABG pCO2 31 mmHg (35-45) L 08/10/18 10:50 ABG pO2 43 mmHg (85-104) L* 08/10/18 04:22 ABG O2 Saturation 83 % (95-98) L 08/10/18 04:22 Sodium 133 mEq/L (136-145) L 08/07/18 05:21 Chloride 97 mEq/L (98-107) L 08/06/18 10:20 Carbon Dioxide 22 mEq/L (23-29) L 08/09/18 03:36 BUN 24 mg/dL (8-23) H 08/13/18 09:40 0.64 mg/dL (0.70-1.30) L 08/13/18 09:40 38 (6-26) H 08/13/18 09:40 Glucose 140 mg/dL (70-105) H 08/13/18 09:40 POC Glucose 204 mg/dL (70-99) H 08/12/18 20:07 303 (280-300) H 08/09/18 03:36 Lactic Acid 4.2 mmol/L (0.5-2.2) H* 08/07/18 09:10 Calcium 8.1 mg/dL (8.6-10.3) L 08/13/18 09:40 Iron 36 mcg/dL (65-175) L 08/12/18 03:58 % Saturation 16 % (20-55) L 08/12/18 03:58 157 mg/dL (203-362) L 08/12/18 03:58 435 ng/mL (20-250) H 08/12/18 03:58 524 Units/L (140-271) H 08/12/18 03:58 B-Natriuretic Peptide 195 pg/mL (Less than 100) H 08/11/18 20:46 5.9 g/dL (6.4-8.9) L 08/06/18 10:20 2.8 g/dL (3.5-5.7) L 08/06/18 10:20 0.9 (1.1-2.2) L 08/06/18 10:20 Vitamin B12 1151 pg/mL (250-1100) H 08/12/18 03:58 Ur Specific [place] > 1.030 (1.010-1.025) H 08/06/18 14:35 Gastric Occult Blood Positive (Negative) A 08/08/18 18:30 Vancomycin Trough 13 mcg/mL (5-10) H 08/08/18 00:08 Exam: General: Patient is alert, moderate distress, oriented x 3 ENT: Mucous membranes moist; Krysta NC in place Respiratory: Coarse breath sounds bilaterally.. Cardiovascular: Regular rate and rhythm. s1 and s2 normal No clicks, rubs, gallops, or murmurs. No pedal edema Abdomen: Abdomen is soft, nontender. Bowel sounds are present Musculoskeletal: Spontaneously moving all extremities Skin: warm, dry, intact. Neuro: Alert oriented x 3 normal cranial nerves, no focal deficits Palliative Quality Palliative Quality: Screen for Code Status: Yes, Screen for Goals of Care: Yes, Screen for Pain: Yes, If Pain Regimen Started, Initiate Bowel Regimen: NA, Screen for Nausea/Vomitting: Yes Code Status: 08/06/18 14:04 Resuscitation Status: Active [RES] Routine Comment: Resuscitation Status: Full Code 08/11/18 15:47 Resuscitation Status: Active [RES] Routine Comment: Resuscitation Status: [id number] - Labs CBC & Chem 7: 08/13/18 09:40 08/13/18 09:40 Labs: Laboratory Results - last 24 hr 08/12/18 08/12/18 08/12/18 07:27 11:34 16:19 WBC RBC Hgb Hct MCV MCH MCHC RDW Plt Count MPV Seg Neutrophils % Band Neutrophils % Lymphocytes % Metamyelocytes % Neutrophils # Lymphocytes # Nucleated RBCs/100 WBC Platelet Estimate Polychromasia Anisocytosis Sodium Potassium Chloride Carbon Dioxide BUN Creatinine Est GFR ( Amer) Est GFR (Non-Af Amer) BUN/Creatinine Ratio Glucose POC Glucose 126 H 257 H 111 H Calculated Osmolality Calcium 08/12/18 08/13/18 08/13/18 20:07 09:40 09:40 WBC 17.7 H RBC 3.08 L Hgb 8.5 L Hct 27.5 L MCV 89.3 MCH 27.6 L MCHC 30.9 L RDW 18.0 H Plt Count 318 MPV 10.1 Seg Neutrophils % 91.0 Band Neutrophils % 4.0 Lymphocytes % 2.0 Metamyelocytes % 3.0 H Neutrophils # 16.8 H Lymphocytes # 0.4 L Nucleated RBCs/100 WBC 0.4 H Platelet Estimate Normal Polychromasia 2+ A Anisocytosis 1+ A Sodium 141 Potassium 4.6 Chloride 104 Carbon Dioxide 27 BUN 24 H Creatinine 0.64 L Est GFR ( Amer) > 60 Est GFR (Non-Af Amer) > 60 BUN/Creatinine Ratio 38 H Glucose 140 H POC Glucose 204 H Calculated Osmolality 298 Calcium 8.1 L - ABG Interpretation ABG results: ABG ABG pH 7.50 pH Units (7.32-7.45) H 08/10/18 10:50 ABG pCO2 31 mmHg (35-45) L 08/10/18 10:50 ABG pO2 95 mmHg (85-104) 08/10/18 10:50 ABG O2 Saturation 98 % (95-98) 08/10/18 10:50 PT/INR, D-dimer PT 14.0 Seconds (9.4-12.1) H 08/06/18 10:20 Palliative Scale - Palliative Performance Scale How ambulatory is this patient?: Mainly in bed What is patient's level of activity and evidence of disease?: Unable to do most activity, Extensive disease How much self-care assistance does patient require?: Mainly assistance How much oral intake does the patient have?: Normal or reduced What is this patient's level of consciousness?: Full Palliative Performance Score: 40 % Consult Discharge Plan - Plan Referrals: Rosaline Foote, AUDIO VISUAL TECHNICIAN [Primary Care Provider] -
[2018-08-13] MEDS ORDERED: 0.9 % Sodium Chloride 500 ML IVC ONE (22:51)
[2018-08-14] MEDS: Levalbuterol Neb 0.63 MG/3 ML IH SCH ×4 (04:01→22:58)
[2018-08-14 04:06] LABS: Hematocrit 27.4 % (37.5-50.1); Hemoglobin 8.5 g/dL (12.9-16.9); Mean Corpuscular Volume 90.1 fL (83.0-100.0); Mean Platelet Volume 10.8 fL (9.4-12.4); Nucleated Red Blood Cells 0.4 /100 WBC (0); Platelet Count 310 K/mcL (140-400); Red Blood Count 3.04 M/mcL (4.19-5.50); Red Cell Distribution Width 18.3 % (11.5-14.5)
[2018-08-14 04:23] LABS: BUN/Creatinine Ratio 41 (6-26); Blood Urea Nitrogen 30 mg/dL (8-23); Calcium 8.5 mg/dL (8.6-10.3); Carbon Dioxide 31 mEq/L (23-29); Chloride 100 mEq/L (98-107); Glucose 144 mg/dL (70-105); Osmolality,Calculated 299 (280-300); Potassium 4.4 mEq/L (3.5-5.1); Sodium 140 mEq/L (136-145); eGFR For Non-African Americans > 60 (> 60)
[2018-08-14 05:33] LABS: Neutrophils # 14.4 K/mcL (1.6-8.9)
[2018-08-14 05:34] LABS: Platelet Estimate Normal (Normal); Polychromasia 1+ (Not Present)
[2018-08-14 05:35] LABS: Anisocytosis 1+ (Not Present)
[2018-08-14] MEDS: Pantoprazole 40 MG VIAL IVP SCH ×2 (05:35→17:33)
[2018-08-14] MEDS: MethylPREDNISolone 40 MG/ML VIAL IVP SCH ×2 (05:35→17:31)
[2018-08-14] MEDS: *HR* Heparin 5,000 UNIT/ML VIAL SQ SCH ×3 (05:35→21:44)
[2018-08-14] MEDS: Insulin LISPRO 300 UNITS/3 ML VIAL SQ SCH ×4 (09:21→22:26)
[2018-08-14] MEDS: Aspirin 325 MG TABLET PO SCH (09:21)
[2018-08-14] MEDS: Insulin DETEMIR 100 UNIT/ML X5UNITS SQ SCH (09:21)
[2018-08-14] MEDS: Doxycycline 100 MG CAPSULE PO SCH ×2 (09:22→21:43)
[2018-08-14] MEDS: Furosemide 80 MG in 0.9 % Sodium Chloride 50 ML IVPB SCH ×2 (09:38→17:33)
[2018-08-14] MEDS: Budesonide/Formoterol 160/4.5 1 PUFF INH IH SCH ×2 (11:04→22:59)
[2018-08-14] MEDS ORDERED: *HR* OxyCODONE Immed Rel 5 MG TABLET PO PRN (14:24)
--- NOTE | 2018-08-14 14:31 | Palliative Progress Note ---
Date of Encounter: 08/14/18 Time of Encounter: 10:30 - Assessment and plan (1) Anxiety Current Visit: Yes Status: Acute Assessment and plan: Patient appears anxious, agrees to start Ativan 1 mg prn. (2) Dyspnea Current Visit: No Status: Acute Assessment and plan: Patient continues to be dependent on Bipap or HFNC 60 l/min. Per oncology not a candidate for any intervention. Per Pulmonary, on a trial of aggressive diuresis. Will add low dose Oxycodone 5 mg prn Qualifiers: Dyspnea type: acute respiratory distress Qualified Code(s): R06.03 - Acute respiratory distress (3) Goals of care, counseling/discussion Current Visit: Yes Status: Acute Assessment and plan: Follow up discussion today with Jumana, daughter and patient. Family appears to be switching between moments of acceptance and moments of denial of the pt's prognosis. However, they remain agreeable to returning home with hospice. They are aware that patient will be dependent on BiPAP and will if not on BiPAP, but today they stated they want to remain optimistic and just go home. ANA Hamlin made aware of plan, to contact [facility] hosp[facility] for discharge planning. Palliative care will continue to follow. (4) Palliative care encounter Current Visit: Yes Status: Acute (5) Acute respiratory failure with hypoxia Current Visit: Yes Status: Acute (6) Squamous cell lung cancer Current Visit: Yes Status: Chronic Qualifiers: Laterality: left Qualified Code(s): C34.92 - Malignant neoplasm of unspecified part of left bronchus or lung - Time Spent With Patient Total time spent is greater than 50% in coordination of care (as documented) at patient's floor/unit and/or counseling patient: - Subjective Interval history: Patient was lying in bed, he is more anxious looking today. As per , pt had a bad night, and had an episode of delirium, however he was able to be redirected. Now he feels back to baseline. - Constitutional Vitals: Abnormal lab results WBC 16.4 K/mcL (4.3-11.1) H 08/14/18 03:35 RBC 3.04 M/mcL (4.19-5.50) L 08/14/18 03:35 Hgb 8.5 g/dL (12.9-16.9) L 08/14/18 03:35 Hct 27.4 % (37.5-50.1) L 08/14/18 03:35 MCH 27.6 pg (28.0-33.3) L 08/13/18 09:40 MCHC 31.0 g/dL (31.6-35.5) L 08/14/18 03:35 RDW 18.3 % (11.5-14.5) H 08/14/18 03:35 Immature Gran % 5.6 % (0-4) H 08/12/18 03:58 3.0 % (0) H 08/13/18 09:40 2.0 % (0) H 08/10/18 06:01 14.4 K/mcL (1.6-8.9) H 08/14/18 03:35 0.4 K/mcL (0.6-4.6) L 08/13/18 09:40 Nucleated RBCs/100 WBC 0.4 /100 WBC (0) H 08/14/18 03:35 1+ (Not Present) A 08/14/18 03:35 Present (Not Present) A 08/10/18 06:01 1+ (Not Present) A 08/14/18 03:35 PT 14.0 Seconds (9.4-12.1) H 08/06/18 10:20 ABG pH 7.50 pH Units (7.32-7.45) H 08/10/18 10:50 ABG pCO2 31 mmHg (35-45) L 08/10/18 10:50 ABG pO2 43 mmHg (85-104) L* 08/10/18 04:22 ABG O2 Saturation 83 % (95-98) L 08/10/18 04:22 Sodium 133 mEq/L (136-145) L 08/07/18 05:21 Chloride 97 mEq/L (98-107) L 08/06/18 10:20 Carbon Dioxide 31 mEq/L (23-29) H 08/14/18 03:35 BUN 30 mg/dL (8-23) H 08/14/18 03:35 0.64 mg/dL (0.70-1.30) L 08/13/18 09:40 41 (6-26) H 08/14/18 03:35 Glucose 144 mg/dL (70-105) H 08/14/18 03:35 POC Glucose 204 mg/dL (70-99) H 08/13/18 21:27 303 (280-300) H 08/09/18 03:36 Lactic Acid 2.4 mmol/L (0.5-2.2) H 08/14/18 01:03 Calcium 8.5 mg/dL (8.6-10.3) L 08/14/18 03:35 Iron 36 mcg/dL (65-175) L 08/12/18 03:58 % Saturation 16 % (20-55) L 08/12/18 03:58 157 mg/dL (203-362) L 08/12/18 03:58 435 ng/mL (20-250) H 08/12/18 03:58 524 Units/L (140-271) H 08/12/18 03:58 B-Natriuretic Peptide 195 pg/mL (Less than 100) H 08/11/18 20:46 5.9 g/dL (6.4-8.9) L 08/06/18 10:20 2.8 g/dL (3.5-5.7) L 08/06/18 10:20 0.9 (1.1-2.2) L 08/06/18 10:20 Vitamin B12 1151 pg/mL (250-1100) H 08/12/18 03:58 Ur Specific [place] > 1.030 (1.010-1.025) H 08/06/18 14:35 Gastric Occult Blood Positive (Negative) A 08/08/18 18:30 Vancomycin Trough 13 mcg/mL (5-10) H 08/08/18 00:08 Exam: General: Patient is alert, moderate distress, oriented x 3 ENT: Mucous membranes moist; Krysta NC in place Respiratory: Coarse breath sounds bilaterally.. Cardiovascular: Regular rate and rhythm. s1 and s2 normal No clicks, rubs, gallops, or murmurs. No pedal edema Abdomen: Abdomen is soft, nontender. Bowel sounds are present Musculoskeletal: Spontaneously moving all extremities Skin: warm, dry, intact. Neuro: Alert oriented x 3 normal cranial nerves, no focal deficits Palliative Quality Palliative Quality: Screen for Code Status: Yes, Screen for Goals of Care: Yes, Screen for Pain: Yes, If Pain Regimen Started, Initiate Bowel Regimen: NA, Screen for Nausea/Vomitting: Yes Code Status: 08/06/18 14:04 Resuscitation Status: Active [RES] Routine Comment: Resuscitation Status: Full Code 08/11/18 15:47 Resuscitation Status: Active [RES] Routine Comment: Resuscitation Status: [id number] - Labs CBC & Chem 7: 08/14/18 03:35 08/14/18 03:35 Labs: Laboratory Results - last 24 hr 08/13/18 08/13/18 08/13/18 07:52 11:25 16:27 WBC RBC Hgb Hct MCV MCH MCHC RDW Plt Count MPV Seg Neutrophils % Lymphocytes % Monocytes % Neutrophils # Lymphocytes # Monocytes # Nucleated RBCs/100 WBC Platelet Estimate Polychromasia Anisocytosis Sodium Potassium Chloride Carbon Dioxide BUN Creatinine Est GFR ( Amer) Est GFR (Non-Af Amer) BUN/Creatinine Ratio Glucose POC Glucose 106 H 198 H 128 H Calculated Osmolality Lactic Acid Calcium 08/13/18 08/13/18 08/14/18 21:27 22:10 01:03 WBC RBC Hgb Hct MCV MCH MCHC RDW Plt Count MPV Seg Neutrophils % Lymphocytes % Monocytes % Neutrophils # Lymphocytes # Monocytes # Nucleated RBCs/100 WBC Platelet Estimate Polychromasia Anisocytosis Sodium Potassium Chloride Carbon Dioxide BUN Creatinine Est GFR ( Amer) Est GFR (Non-Af Amer) BUN/Creatinine Ratio Glucose POC Glucose 204 H Calculated Osmolality Lactic Acid 2.6 H 2.4 H Calcium 08/14/18 08/14/18 03:35 03:35 WBC 16.4 H RBC 3.04 L Hgb 8.5 L Hct 27.4 L MCV 90.1 MCH 28.0 MCHC 31.0 L RDW 18.3 H Plt Count 310 MPV 10.8 Seg Neutrophils % 88.0 Lymphocytes % 6.0 Monocytes % 6.0 Neutrophils # 14.4 H Lymphocytes # 1.0 Monocytes # 1.0 Nucleated RBCs/100 WBC 0.4 H Platelet Estimate Normal Polychromasia 1+ A Anisocytosis 1+ A Sodium 140 Potassium 4.4 Chloride 100 Carbon Dioxide 31 H BUN 30 H Creatinine 0.73 Est GFR ( Amer) > 60 Est GFR (Non-Af Amer) > 60 BUN/Creatinine Ratio 41 H Glucose 144 H POC Glucose Calculated Osmolality 299 Lactic Acid Calcium 8.5 L - ABG Interpretation ABG results: ABG ABG pH 7.50 pH Units (7.32-7.45) H 08/10/18 10:50 ABG pCO2 31 mmHg (35-45) L 08/10/18 10:50 ABG pO2 95 mmHg (85-104) 08/10/18 10:50 ABG O2 Saturation 98 % (95-98) 08/10/18 10:50 PT/INR, D-dimer PT 14.0 Seconds (9.4-12.1) H 08/06/18 10:20 Palliative Scale - Palliative Performance Scale How ambulatory is this patient?: Mainly in bed What is patient's level of activity and evidence of disease?: Unable to do most activity, Extensive disease How much self-care assistance does patient require?: Mainly assistance How much oral intake does the patient have?: Normal or reduced What is this patient's level of consciousness?: Full Palliative Performance Score: 40 % Consult Discharge Plan - Plan Referrals: Rosaline Foote, CASUALTY INSURANCE CLAIM ADJUSTER [Primary Care Provider] -
--- NOTE | 2018-08-14 16:45 | Discharge Summary ---
Orders not resulted at time of discharge: Pending orders 08/06/18 14:15 Culture,Sputum with Gram Stain [RM] Stat 08/07/18 08:28 Culture,Sputum with Gram Stain [] Routine Date of Encounter: 08/14/18 - Discharge Diagnosis (1) Acute respiratory failure with hypoxia Status: Acute (2) Squamous cell lung cancer Status: Chronic Qualifiers: Laterality: left Qualified Code(s): C34.92 - Malignant neoplasm of unspecified part of left bronchus or lung (3) HCAP (healthcare-associated pneumonia) Status: Acute (4) COPD with acute exacerbation Status: Acute (5) Severe sepsis Status: Acute (6) Anemia Status: Chronic Qualifiers: Anemia type: unspecified type Qualified Code(s): D64.9 - Anemia, unspecified Hospital course: Mr. Kahn is a 77 year old male - Time Spent with Patient Total time spent providing and/or coordinating discharge services: - Discharge Medications Prescriptions: New LORazepam Oral Conc [Ativan Oral Conc] 1 mg PO Q4HR PRN 3 Days #10 mls PRN Reason: Anxiety MORPHINE SUL Oral CONC [Roxanol Oral Conc] 5 mg PO Q3H PRN 4 Days #10 oral.syg PRN Reason: Dyspnea Continued BuPROPion SR (12 HR) [Wellbutrin SR] 100 mg PO DAILY Dexamethasone [Decadron] 4 mg PO AD #45 tab Zolpidem [Ambien] 10 mg PO HS PRN PRN Reason: Sleep Discontinued Aspirin 325 mg PO DAILY Ariel-3/Dha/Epa/Fish Oil [Fish Oil 1,000 mg Softgel] 1,000 mg PO BID Glucosamine Sulfate Dipot Chlr [Glucosamine] 2,000 mg PO BID Vitamin E 800 unit PO DAILY Simvastatin [Zocor] 80 mg PO DAILY Lisinopril [Zestril] 10 mg PO DAILY Docusate [Colace] 100 mg PO BID PRN #60 capsule PRN Reason: Constipation Magic Mouthwash [Magic Mouthwash BLM] 10 ml PO QID PRN #240 ml PRN Reason: Mouth Irritation Lidocaine/Prilocaine [Emla] 1 appl TP AD PRN PRN Reason: Pain Of Port Access Home Medications: BuPROPion SR (12 HR) [Wellbutrin SR] 100 mg PO DAILY 06/29/18 [History] Dexamethasone [Decadron] 4 mg PO AD #45 tab 07/06/18 [Rx] Zolpidem [Ambien] 10 mg PO HS PRN 08/06/18 [History] LORazepam Oral Conc [Ativan Oral Conc] 1 mg PO Q4HR PRN 3 Days #10 mls 08/14/18 [Rx] MORPHINE SUL Oral CONC [Roxanol Oral Conc] 5 mg PO Q3H PRN 4 Days #10 oral.syg 08/14/18 [Rx] Allergies/Adverse Reactions: Allergy/AdvReac Type Severity Reaction Status Date / Time No Known Allergies Allergy Verified 07/10/18 10:42 Date of admission: 08/07/18 11:44 Primary care physician: Rosaline Foote CNP Consults: 08/06/18 14:07 Consult to Occupational Therapy [CONS] Routine Comment: Evaluate, develop and implement POC Reason for Consult: weakness Does patient have active BEDREST order?: No Is patient medically & hemodynamically stable?: Yes Patient assessed for mobility or mobilized this visit?: No Consult to Physical Therapy [CONS] Routine Comment: Evaluate, develop and implement POC Reason for Consult: weakness Does patient have active BEDREST order?: No Is patient medically & hemodynamically stable?: Yes Patient assessed for mobility or mobilized this visit?: No 08/09/18 08:18 Consult to Gastroenterology [CONS] Routine Consulting Provider: Gastroenterology Cha Reason for Consult: POssible Upper GI bleed Call Completed: No 08/10/18 12:30 Consult to Invasive Line Access Team [CONS] Routine Reason for Consult: POwerglide insertion Line Type: EPIV PICC line indications: Limited vascular access 08/11/18 10:53 Consult to Palliative Care [CONS] Routine Comment: Consulting Provider: Palliative Care Cha Reason for Consult: Goals of care/ lung Ca patient Time Notified: 10:54 Call Completed: Yes 08/11/18 12:54 Consult to Oncology [CONS] Routine Consulting Provider: [facility]cology [facility] Reason for Consult: Met lung cancer - not improving from acute illness; prognosis Time Notified: 12:55 Call Completed: Yes Consult to Pulmonology [CONS] Routine Consulting Provider: Pulm Crit Care & Sleep [place] Reason for Consult: Resp failure- multifactorial not improving Time Notified: 12:54 Call Completed: Yes - Constitutional Vitals: Temp Pulse Resp BP Pulse Ox 98.2 F 108 24 111/65 94 08/14/18 15:45 08/14/18 15:45 08/14/18 15:59 08/14/18 15:45 08/14/18 15:59 General appearance: Present: cooperative, A&O X 3, pleasant, no acute distress, answers questions appropriately - Patient Status Disposition: Hospice - Home Condition: Fair - Discharge Instructions Follow Up With: Rosaline Foote PLASTIC INJECTION MOLD MAKER [Primary Care Provider] -
--- NOTE | 2018-08-14 16:46 | Physician Discharge Referral ---
Home Health/Hosp Referral Info Transfer to: Hospice - Diagnosis (1) Acute respiratory failure with hypoxia Status: Acute (2) Squamous cell lung cancer Status: Chronic (3) HCAP (healthcare-associated pneumonia) Status: Acute (4) COPD with acute exacerbation Status: Acute (5) Severe sepsis Status: Acute (6) Anemia Status: Chronic - Respiratory Orders Smoking Cessation: Smoking cessation has been advised. For more information, call the [employer] Tobacco Quit Line at 7-552-UOAA-NOW. - Services Needed Following services are medically necessary services: Nursing, Home Health Aide - Transfer Medications Prescriptions: LORazepam Oral Conc [Ativan Oral Conc] 1 mg PO Q4HR PRN 3 Days #10 mls PRN Reason: Anxiety MORPHINE SUL Oral CONC [Roxanol Oral Conc] 5 mg PO Q3H PRN 4 Days #10 oral.syg PRN Reason: Dyspnea Home Medications: BuPROPion SR (12 HR) [Wellbutrin SR] 100 mg PO DAILY 06/29/18 [History] Dexamethasone [Decadron] 4 mg PO AD #45 tab 07/06/18 [Rx] Zolpidem [Ambien] 10 mg PO HS PRN 08/06/18 [History] LORazepam Oral Conc [Ativan Oral Conc] 1 mg PO Q4HR PRN 3 Days #10 mls 08/14/18 [Rx] MORPHINE SUL Oral CONC [Roxanol Oral Conc] 5 mg PO Q3H PRN 4 Days #10 oral.syg 08/14/18 [Rx] Allergies/Adverse Reactions: Allergy/AdvReac Type Severity Reaction Status Date / Time No Known Allergies Allergy Verified 07/10/18 10:42 Certification: Further, I certify that my clinical findings support that this patient is homebound (i.e. absences from home require considerable and taxing effort and are for medical reasons or confucianism services or infrequently or short duration when for other reasons) because: Homebound Reason: Patient requires assistance of a person or device to safely leave home Attestation: My signature below is to certify that this patient is under my care and that I, or nurse practitioner, or a physician's fitness assistant working with me, has a [id number] encounter with this patient.
--- NOTE | 2018-08-14 20:21 | Internal Med Progress Note ---
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 Patient still requiring high flow oxygenation has not been able to be weaned down. Plans to travel patient on low-dose Roxicodone and low-dose Ativan to see if patient can tolerate BiPAP with 2 L bleed in with settings over 02/28 for EMS transportation home with hospice potentially on 08/15/18 - Exam Vitals: Temp Pulse Resp BP Pulse Ox 97.7 F 104 22 111/72 91 08/14/18 19:33 08/14/18 19:33 08/14/18 19:33 08/14/18 19:33 08/14/18 19:33 Exam: Gen.: Nonacute distress, alert and oriented 3 ENT: Mucosal membranes moist Respiratory: Lungs are clear to auscultation bilaterally without any wheezing rhonchi or rales Cardiovascular: Normal S1 and S2 regular rate rhythm no murmurs rubs or gallops Abdomen: Soft, nontender and nondistended with positive bowel sounds Extremities: No lower extremity edema Skin: Normal color - Assessment and Plan (1) Acute respiratory failure with hypoxia Current Visit: Yes Status: Acute Assessment and Plan: Patient still requiring high flow oxygenation has not been able to be weaned down. Pulmonology following and suspects multifactorial including prostatic pulmonary edema, COPD exacerbation, possible pneumonia, possible radiation pneumonitis, underlying lung cancer. Poor prognosis per pulmonology Recommendations for aggressive IV diuresis for hydrostatic pulmonary edema to s ee if respiratory status improves Discussed goals of care with family. Patient still requiring high flow oxygenation has not been able to be weaned down. 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 Patient was planned to start chemotherapy on 08/06/18 as an outpatient but was sent to the ER due to hypoxia and hypotension CT angiogram of the chest showed redemonstration of left upper lung cancer extending along the left anterior, medial and lateral pleural surfaces as well as into the left hilar area with encasement of vessels and bronchi. In addition CT also demonstrated extensive mediastinal and hilar lymphadenopathy Hematology oncology following with recommendations for home with hospice (3) HCAP (healthcare-associated pneumonia) Current Visit: Yes Status: Acute Assessment and Plan: Chest x-ray showed bilateral airspace disease likely combination pneumonia, malignancy and atelectasis Patient's leukocytosis has improved and has been afebrile with oral antibiotic Will continue by mouth Augmentin and doxycycline (4) COPD with acute exacerbation Current Visit: Yes Status: Acute Assessment and Plan: Patient currently on steroids, bronchodilators. Continue to monitor (5) Severe sepsis Current Visit: Yes Status: Acute Assessment and Plan: Sepsis resolved. Blood cultures have been negative. Procalcitonin level was normal. Complete oral antibiotic course. (6) Anemia Current Visit: Yes Status: Chronic Assessment and Plan: Patient with acute blood loss anemia which is stable Patient's hemoglobin on 06/2018 was 13.3 and this morning is 7.8 Patient was found to have a positive gastric occult blood in stool GI was consulted with recommendations for EGD for evaluation family declined and preferred that evaluation/workup be done at a later time. DVT Prophylaxis: Heparin subcutaneous - Time Spent with Patient Total time spent is greater than 50% in coordination of care (as documented) at patient's floor/unit and/or counseling patient: Internal Medicine: Result - Labs CBC & Chem 7: 08/14/18 03:35 08/14/18 03:35 Labs: Short CBC 08/14/18 Range/Units 03:35 WBC 16.4 H (4.3-11.1) K/mcL Hgb 8.5 L (12.9-16.9) g/dL Hct 27.4 L (37.5-50.1) % Plt Count 310 (140-400) K/mcL Neutrophils # 14.4 H (1.6-8.9) K/mcL BMP 08/14/18 03:35 Sodium 140 Potassium 4.4 Chloride 100 Carbon Dioxide 31 H BUN 30 H Creatinine 0.73 Glucose 144 H Calcium 8.5 L - ABG Interpretation ABG results: ABG ABG pH 7.50 pH Units (7.32-7.45) H 08/10/18 10:50 ABG pCO2 31 mmHg (35-45) L 08/10/18 10:50 ABG pO2 95 mmHg (85-104) 08/10/18 10:50 ABG O2 Saturation 98 % (95-98) 08/10/18 10:50 PT/INR, D-dimer PT 14.0 Seconds (9.4-12.1) H 08/06/18 10:20 Consult Discharge Plan - Plan Referrals: Rosaline Foote, [facility] [Primary Care Provider] - Prescriptions: LORazepam Oral Conc [Ativan Oral Conc] 1 mg PO Q4HR PRN 3 Days #10 mls PRN Reason: Anxiety MORPHINE SUL Oral CONC [Roxanol Oral Conc] 5 mg PO Q3H PRN 4 Days #10 oral.syg PRN Reason: Dyspnea (2) Squamous cell lung cancer Qualifiers: Laterality: left Qualified Code(s): C34.92 - Malignant neoplasm of unspecified part of left bronchus or lung (6) Anemia Qualifiers: Anemia type: unspecified type Qualified Code(s): D64.9 - Anemia, unspecified
[2018-08-14] MEDS: *HR* LORazepam 1 MG TABLET PO PRN (21:42)
[2018-08-14] MEDS: *HR* OxyCODONE Immed Rel 5 MG TABLET PO PRN (21:43)
[2018-08-15] MEDS: Levalbuterol Neb 0.63 MG/3 ML IH SCH ×2 (04:05→10:18)
[2018-08-15] MEDS: *HR* Heparin 5,000 UNIT/ML VIAL SQ SCH (05:22)
[2018-08-15] MEDS: Pantoprazole 40 MG VIAL IVP SCH (05:22)
[2018-08-15] MEDS: MethylPREDNISolone 40 MG/ML VIAL IVP SCH (05:22)
[2018-08-15 07:11] VITALS: BP 137/72
[2018-08-15] MEDS: Insulin LISPRO 300 UNITS/3 ML VIAL SQ SCH ×2 (09:06→12:25)
[2018-08-15] MEDS: Insulin DETEMIR 100 UNIT/ML X5UNITS SQ SCH (09:09)
[2018-08-15] MEDS: Doxycycline 100 MG CAPSULE PO SCH (09:09)
[2018-08-15] MEDS: Aspirin 325 MG TABLET PO SCH (09:09)
[2018-08-15] MEDS: Budesonide/Formoterol 160/4.5 1 PUFF INH IH SCH (10:18)
[2018-08-15] MEDS: *HR* LORazepam 1 MG TABLET PO PRN (12:24)
[2018-08-15] MEDS: *HR* OxyCODONE Immed Rel 5 MG TABLET PO PRN (12:25)
--- NOTE | 2018-08-15 17:36 | Discharge Summary ---
Date of Encounter: 08/15/18 Time of Encounter: 13:00 - Discharge Diagnosis (1) Acute respiratory failure with hypoxia Priority: Primary Status: Acute (2) Squamous cell lung cancer Priority: Primary Status: Chronic Qualifiers: Laterality: left Qualified Code(s): C34.92 - Malignant neoplasm of unspecified part of left bronchus or lung (3) HCAP (healthcare-associated pneumonia) Priority: Primary Status: Acute (4) COPD with acute exacerbation Priority: Primary Status: Acute (5) Severe sepsis Priority: Primary Status: Acute (6) Anemia Priority: Primary Status: Chronic Qualifiers: Anemia type: unspecified type Qualified Code(s): D64.9 - Anemia, unspecified Hospital course: Patient is a 77-year-old male with past medical history significant for 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 During patients hospital stay he was managed on high flow oxygen, Krysta/BiPAP, due to acute hypoxic respiratory failure and was never able to be weaned off. Pulmonology had no further recommendations as patient was determined to have poor prognosis due to his stage IV lung cancer which had gotten worse. Hematology oncology recommended hospice due to patient being a poor treatment candidate. Palliative care was consulted and multiple family discussions were held and family/patient has decided to go home with hospice to spend final days at home with family. - Time Spent with Patient Total time spent providing and/or coordinating discharge services: Time spent: Less than 30 minutes - Discharge Medications Prescriptions: New LORazepam Oral Conc [Ativan Oral Conc] 1 mg PO Q4HR PRN 3 Days #10 mls PRN Reason: Anxiety MORPHINE SUL Oral CONC [Roxanol Oral Conc] 5 mg PO Q3H PRN 4 Days #10 oral.syg PRN Reason: Dyspnea Continued BuPROPion SR (12 HR) [Wellbutrin SR] 100 mg PO DAILY Dexamethasone [Decadron] 4 mg PO AD #45 tab Zolpidem [Ambien] 10 mg PO HS PRN PRN Reason: Sleep Discontinued Aspirin 325 mg PO DAILY [place]-3/Dha/Epa/Fish Oil [Fish Oil 1,000 mg Softgel] 1,000 mg PO BID Glucosamine Sulfate Dipot Chlr [Glucosamine] 2,000 mg PO BID Vitamin E 800 unit PO DAILY Simvastatin [Zocor] 80 mg PO DAILY Lisinopril [Zestril] 10 mg PO DAILY Docusate [Colace] 100 mg PO BID PRN #60 capsule PRN Reason: Constipation Magic Mouthwash [Magic Mouthwash BLM] 10 ml PO QID PRN #240 ml PRN Reason: Mouth Irritation Lidocaine/Prilocaine [Emla] 1 appl TP AD PRN PRN Reason: Pain Of Port Access Home Medications: BuPROPion SR (12 HR) [Wellbutrin SR] 100 mg PO DAILY 06/29/18 [History] Dexamethasone [Decadron] 4 mg PO AD #45 tab 07/06/18 [Rx] Zolpidem [Ambien] 10 mg PO HS PRN 08/06/18 [History] LORazepam Oral Conc [Ativan Oral Conc] 1 mg PO Q4HR PRN 3 Days #10 mls 08/14/18 [Rx] MORPHINE SUL Oral CONC [Roxanol Oral Conc] 5 mg PO Q3H PRN 4 Days #10 oral.syg 08/14/18 [Rx] Allergies/Adverse Reactions: Allergy/AdvReac Type Severity Reaction Status Date / Time No Known Allergies Allergy Verified 07/10/18 10:42 Date of admission: 08/07/18 11:44 Primary care physician: Rosaline Foote CNP Consults: 08/06/18 14:07 Consult to Occupational Therapy [CONS] Routine Comment: Evaluate, develop and implement POC Reason for Consult: weakness Does patient have active BEDREST order?: No Is patient medically & hemodynamically stable?: Yes Patient assessed for mobility or mobilized this visit?: No Consult to Physical Therapy [CONS] Routine Comment: Evaluate, develop and implement POC Reason for Consult: weakness Does patient have active BEDREST order?: No Is patient medically & hemodynamically stable?: Yes Patient assessed for mobility or mobilized this visit?: No 08/09/18 08:18 Consult to Gastroenterology [CONS] Routine Consulting Provider: Jairo Eubanks Reason for Consult: POssible Upper GI bleed Call Completed: No 08/10/18 12:30 Consult to Invasive Line Access Team [CONS] Routine Reason for Consult: POwerglide insertion Line Type: EPIV PICC line indications: Limited vascular access 08/11/18 10:53 Consult to Palliative Care [CONS] Routine Comment: Consulting Provider: [facility] Reason for Consult: Goals of care/ lung Ca patient Time Notified: 10:54 Call Completed: Yes 08/11/18 12:54 Consult to Oncology [CONS] Routine Consulting Provider: [facility] Reason for Consult: Met lung cancer - not improving from acute illness; prognosis Time Notified: 12:55 Call Completed: Yes Consult to Pulmonology [CONS] Routine Consulting Provider: [facility] Reason for Consult: Resp failure- multifactorial not improving Time Notified: 12:54 Call Completed: Yes - Constitutional Vitals: Temp Pulse Resp BP Pulse Ox 96.6 F L 97 30 137/72 88 08/15/18 07:07 08/15/18 07:07 08/15/18 10:18 08/15/18 10:18 08/15/18 10:18 General appearance: Present: cooperative, A&O X 3, pleasant, no acute distress, answers questions appropriately Exam: Gen.: Nonacute distress, alert Skin: pale - Patient Status Disposition: Hospice - Home Condition: Fair - Discharge Instructions Follow Up With: Rosaline Foote APPLICATIONS DEVELOPMENT ANALYST [Primary Care Provider] - (Referral made, the physicians office will contact the patient via phone to schedule an appointment. )
== END 2018-08-15 12:47 | disposition hospice, home (50) | DRG 871 ==
LOC: EMEROOARM 10:10 → 2NENU 10:10 → SUATTDRO 14:15 → 2NENU 15:30 → SUATTDRO 08-07 11:44
PROVIDERS: ADMIT Internal Medicine Nephrology; ATTEND Hospitalist